=== PATIENT | female | born 1975 | race Caucasian/White ===

== ENCOUNTER 2019-12-18 14:37 | Inpatient (IN) | payer SELFPAY ==
--- NOTE | 2019-12-18 15:26 | RAD REPORT ---
EXAM DESCRIPTION: Shawna Single View12/18/2019 3:18 pm CLINICAL HISTORY: Chest pain COMPARISON: none FINDINGS: The lungs appear clear of acute infiltrate. The heart is normal size IMPRESSION: No acute abnormalities displayed
[2019-12-18] MEDS ORDERED: FENTANYL CITR 100 MCG/2 ML ONE (15:40)
[2019-12-18 15:45] LABS: Absolute Lymphocytes (CBC) 2.4 K/uL (0.7-4.9); Basophils % 0.5 % (0-1.3); Lymphocytes % 16.9 % (15.3-44.8); MPV 8.5 fL (7.6-11.3); RBC Red Blood Cell Count 5.28 M/uL (3.86-4.86)
[2019-12-18 16:04] LABS: BUN Blood Urea Nitrogen 20 mg/dL (7-18); Bicarbonate 24 mmol/L (21-32); CKMB Creatine Kinase MB < 1.0 ng/mL (0.3-3.6); Creatine Phosphokinase 75 U/L (26-192); Glucose Level 106 mg/dL (74-106); Potassium 3.5 mmol/L (3.5-5.1); Sodium Level 141 mmol/L (136-145); Troponin (Emerg Dept Use Only) < 0.02 ng/mL (0.0-0.045)
[2019-12-18] MEDS ORDERED: NA CHLORIDE 0.9% 1,000 ML ONE (16:12)
[2019-12-18 16:20] LABS: Urine Blood NEGATIVE (NEG); Urine Glucose NEGATIVE (NEG); Urine Protein NEGATIVE (NEG); Urine Specific Gravity 1.025 (1.005-1.030)
--- NOTE | 2019-12-18 17:01 | RAD REPORT ---
EXAM DESCRIPTION: CT - Angio Aorta For Dissection - 12/18/2019 4:42 pm CLINICAL HISTORY: . Chest and abd pain COMPARISON: None TECHNIQUE: Computed tomography angiography of the chest, abdomen pelvis were obtained. 100 cc Isovue 370 was administered intravenously. Coronal and sagittal reconstruction were performed. MIP 3D reconstruction was performed All CT scans are performed using dose optimization technique as appropriate and may include automated exposure control or mA/KV adjustment according to patient size. FINDINGS: An aortic dissection is not seen. An aortic aneurysm is not displayed. The celiac, SMA and SANTIAGO are patent . A lung consolidation is not present. A pericardial effusion is not seen. A pleural effusion is not n oted. Mild subpleural interstitial opacities within the upper lobes appear chronic. The left lobe of the liver is prominent. The Spleen, pancreas adrenals kidneys demonstrate no significant abnormality. . There no evidence diverticulitis. Hysterectomy. Normal appendix IMPRESSION: Negative for an aortic dissection.
[2019-12-18] MEDS ORDERED: METOPROLOL TAR 50 MG TAB ONE (19:04)
--- NOTE | 2019-12-18 19:05 | EDPHYS ---
Physician Documentation [facility] Name: Arianne Beaver Age: 43 yrs Sex: Female : 1975 Arrival Date: 12/18/2019 Time: 14:39 Bed 5 Private MD: ED Physician Isaiah Piper HPI: 12/17 15:10 This 43 yrs old Female presents to ER via Ambulatory with complaints of snw Shortness Of Breath, Back Pain. 15:10 The patient has shortness of breath at rest, with light activity. Onset: The snw symptoms/episode began/occurred suddenly, last night, and became worse this morning. Duration: The symptoms are continuous. Associated signs and symptoms: Pertinent positives: low back pain, mildly painful respirations. Severity of symptoms: in the emergency department the symptoms are unchanged. The patient has not experienced similar symptoms in the past. The patient has not recently seen a physician. no PMH, no meds, no allergies. RESEARCH SUBJECT: 19:45 LMP N/A - Hysterectomy rr5 Historical: - Allergies: 14:50 No Known Allergies; ll1 - PMHx: 20:05 None; rr5 - PSHx: 14:50 Hysterectomy; Tubal ligation; ll1 - Immunization history:: Flu vaccine is not up to date. - Social history:: Smoking status: Patient reports the use of cigarette tobacco products, smokes one-half pack cigarettes per day, Patient uses alcohol, occasionally. only on a social basis. Patient/guardian denies using street drugs, IV drugs. ROS: 15:10 Eyes: Negative for injury, pain, redness, and discharge, ENT: Negative for injury, snw pain, and discharge, Neck: Negative for injury, pain, and swelling, Cardiovascular: Negative for chest pain, palpitations, and edema, Respiratory: Negative for shortness of breath, cough, wheezing, and pleuritic chest pain, Abdomen/GI: Negative for abdominal pain, nausea, vomiting, diarrhea, and constipation, : Negative for injury, bleeding, discharge, and swelling, MS/Extremity: Negative for injury and deformity, Skin: Negative for injury, rash, and discoloration, Neuro: Negative for headache, weakness, numbness, tingling, and seizure, Psych: Negative for depression, anxiety, suicide ideation, homicidal ideation, and hallucinations. 15:10 Constitutional: Positive for malaise. 15:10 Back: Positive for pain at rest, pain with movement, of the low back area. Exam: 15:09 Eyes: Pupils equal round and reactive to light, extra-ocular motions intact. Lids and snw lashes normal. Conjunctiva and sclera are non-icteric and not injected. Cornea within normal limits. Periorbital areas with no swelling, redness, or edema. ENT: Nares patent. No nasal discharge, no septal abnormalities noted. Tympanic membranes are normal and external auditory canals are clear. Oropharynx with no redness, swelling, or masses, exudates, or evidence of obstruction, uvula midline. Mucous membranes moist. Neck: Trachea midline, no thyromegaly or masses palpated, and no cervical lymphadenopathy. Supple, full range of motion without nuchal rigidity, or vertebral point tenderness. No Meningismus. Chest/axilla: Normal chest wall appearance and motion. Nontender with no deformity. No lesions are appreciated. Cardiovascular: Regular rate and rhythm with a normal S1 and S2. No gallops, murmurs, or rubs. Normal PMI, no JVD. No pulse deficits. Abdomen/GI: Soft, non-tender, with normal bowel sounds. No distension or tympany. No guarding or rebound. No evidence of tenderness throughout. Back: No spinal tenderness. No costovertebral tenderness. Full range of motion. Skin: Warm, dry with normal turgor. Normal color with no rashes, no lesions, and no evidence of cellulitis. MS/ Extremity: Pulses equal, no cyanosis. Neurovascular intact. Full, normal range of motion. Neuro: Awake and alert, GCS 15, oriented to person, place, time, and situation. Cranial nerves II-XII grossly intact. Motor strength 5/5 in all extremities. Sensory grossly intact. Cerebellar exam normal. Normal gait. Psych: Awake, alert, with orientation to person, place and time. Behavior, mood, and affect are within normal limits. 15:09 Constitutional: The patient appears alert, awake, anxious. 15:09 Respiratory: the patient does not display signs of respiratory distress, Respirations: shallow respirations, tachypnea, Breath sounds: bronchial sounds, that are mild, are heard in the right posterior middle lobe, Respiratory rate: 24 Vital Signs: 14:47 BP 177 / 114 RA Sitting (auto/); Pulse 83; Resp 18; Temp 98.3; Pulse Ox 100% ; Weight sv 68.95 kg; Height 5 ft. 4 in. (162.56 cm); Pain 8/10; 15:45 BP 175 / 106 LA Sitting (auto/); Pulse 70; Resp 22; Pulse Ox 100% on R/A; sv 16:14 Pain 8/10; sv 17:03 BP 187 / 106 LA Sitting (auto/); Pulse 67; Resp 12; Pulse Ox 100% on R/A; sv 18:30 BP 178 / 102; Pulse 74; Resp 16; Pulse Ox 97% on R/A; hb 19:45 BP 168 / 124; Pulse 70; Resp 17; Pulse Ox 99% ; Pain 6/10; rr5 14:47 Body Mass Index 26.09 (68.95 kg, 162.56 cm) sv MDM: 15:12 Patient medically screened. snw 16:01 The patient's Wells Deep Vein Thrombosis Score was calculated as follows: No Risks (0 snw Pts). The patient's pulmonary embolism risk score was calculated as follows: No Risks (0 Pts). Data reviewed: vital signs, nurses notes. Response to treatment: pt still with pain/sob, no hx of HTN, bilat blood pressures elevated, pt hemoconcentrated, will hydrate, medicated again for pain and CT aorta. 18:15 Physician consultation: Alexei WEN was called at 18:15, was contacted at 18:15, snw regarding admission, to the telemetry unit. patient's condition, and will see patient in ED. 12/17 15:04 Order name: DD; Complete Time: 15:55 snw 12/17 15:04 Order name: Ckmb; Complete Time: 16:05 snw 12/17 15:04 Order name: CPK; Complete Time: 16:05 snw 12/17 15:04 Order name: Troponin (emerg Dept Use Only); Complete Time: 16:05 snw 12/17 15:04 Order name: CBC with Diff; Complete Time: 15:55 snw 12/17 15:04 Order name: Chem 7; Complete Time: 16:05 snw 12/17 15:04 Order name: Chest Single View XRAY; Complete Time: 15:33 snw 09/16 16:01 Order name: CT Aorta for Dissection; Complete Time: 17:21 snw 12/17 16:17 Order name: Urine Dipstick--Ancillary (enter results); Complete Time: 16:21 ss 12/17 15:04 Order name: Urine Dipstick-Ancillary (obtain specimen); Complete Time: 16:13 snw 12/17 15:04 Order name: SL; Complete Time: 15:38 snw 12/17 15:09 Order name: Misc. Order: Please document 177/99; Complete Time: 15:26 snw 12/17 15:09 Order name: Bilateral blood pressure; Complete Time: 15:51 snw Administered Medications: 15:37 Drug: fentaNYL (PF) 50 mcg {Note: rass3.} Route: IVP; Site: right antecubital; sv 16:14 Follow up: Pain 8/10 Adult; Response: No adverse reaction; Pain is decreased; RASS: sv Agitated (+2) 16:13 Drug: fentaNYL (PF) 50 mcg {Note: rass2.} Route: IVP; Site: right antecubital; sv 17:00 Follow up: Response: No adverse reaction; Pain is decreased; RASS: Alert and Calm (0) sv 16:14 Drug: NS 0.9% 1000 ml Route: IV; Rate: 1 bolus; Site: right antecubital; sv 20:05 Follow up: Response: No adverse reaction; IV Status: Completed infusion; IV Intake: rr5 1000ml 19:00 Drug: Metoprolol TARTRATE (Lopressor) 50 mg Route: PO; sv 20:00 Follow up: Response: No adverse reaction rr5 19:52 Drug: Nicotine 21 mg/24 hr 1 patches {Note: right upper arm.} Route: Transdermal; Site: rr5 affected area; 20:06 Follow up: Response: No adverse reaction rr5 Disposition: 12/18/19 19:05 Hospitalization ordered by Isaiah Piper for Observation. Preliminary diagnosis are Chest pain, unspecified, Essential (primary) hypertension, Low back pain, Volume depletion. - Bed requested for Telemetry/MedSurg (observation). - Status is Observation. rr5 - Condition is Stable. - Problem is new. - Symptoms are unchanged. Addendum: 12/23/2019 07:03 Co-signature as Attending Physician, Dennis Piper MD. r n Signatures: Dispatcher [employer] EDMS Regine Chung, RN RN Kimberly Dutta, SODA MAKER-C SODA MAKER-Csnw Dennis Piper MD MD rn Attema, Lee, SODA MAKER-C SODA MAKER-Cla1 India Seo, RN RN tl1 Isaiah Raya RN RN rr5 Marc Mandujano RN RN ll1 Corrections: (The following items were deleted from the chart) 12/17 15:09 15:04 Recheck B/P ordered. [facility] sn 15:34 15:04 Urine Test ordered. [facility] sn 19:07 19:05 Hospitalization Ordered by Isaiah Piper MD for Observation. Preliminary [facility] diagnosis is Chest pain, unspecified; Essential (primary) hypertension; Low back pain. Bed requested for Telemetry/MedSurg (observation). Status is Observation. Condition is Stable. Problem is new. Symptoms are unchanged. [facility] 19:35 19:07 12/18/2019 19:05 Hospitalization Ordered by Isaiah Piper MD for Observation. tl1 Preliminary diagnosis is Chest pain, unspecified; Essential (primary) hypertension; Low back pain; Volume depletion. Bed requested for Telemetry/MedSurg (observation). Status is Observation. Condition is Stable. Problem is new. Symptoms are unchanged. [facility] 20:09 19:35 12/18/2019 19:05 Hospitalization Ordered by Isaiah Piper MD for Observation. rr5 Preliminary diagnosis is Chest pain, unspecified; Essential (primary) hypertension; Low back pain; Volume depletion. Bed requested for Telemetry/MedSurg (observation). Status is Observation. Condition is Stable. Problem is new. Symptoms are unchanged. tl1
--- NOTE | 2019-12-18 19:05 | ER ---
Nurse's Notes [facility] Name: Arianne Beaver Age: 43 yrs Sex: Female : 1975 Arrival Date: 12/18/2019 Time: 14:39 Bed 5 Private MD: Diagnosis: Chest pain, unspecified;Essential (primary) hypertension;Low back pain;Volume depletion Presentation: 12/17 14:47 Chief complaint: Patient states: Low back pain started last night, no trauma or falls. ll1 Pain with breathing started today, no cough or fever. Coronavirus screen: Client denies travel out of the [place] in the last 14 days. difficulty breathing, shortness of breath, At this time, the client does not indicate any symptoms associated with coronavirus-19. Ebola Screen: Patient denies travel to an Ebola-affected area in the 21 days before illness onset. Initial Sepsis Screen: Does the patient meet any 2 criteria? No. Patient's initial sepsis screen is negative. Risk Assessment: Do you want to hurt yourself or someone else? Patient reports no desire to harm self or others. Onset of symptoms was December 17, 2019. 14:47 Method Of Arrival: Ambulatory ll1 14:47 Acuity: ANALILIA 3 ll1 15:30 Initial Sepsis Screen: Does the patient have a suspected source of infection? No. sv Patient's initial sepsis screen is negative. Triage Assessment: 19:10 Respiratory: the patient reports symptoms have resolved. rr5 LAB ANALYST: 19:45 LMP N/A - Hysterectomy rr5 Historical: - Allergies: 14:50 No Known Allergies; ll1 - PMHx: 20:05 None; rr5 - PSHx: 14:50 Hysterectomy; Tubal ligation; ll1 - Immunization history:: Flu vaccine is not up to date. - Social history:: Smoking status: Patient reports the use of cigarette tobacco products, smokes one-half pack cigarettes per day, Patient uses alcohol, occasionally. only on a social basis. Patient/guardian denies using street drugs, IV drugs. Screenin:30 Abuse screen: Denies threats or abuse. Denies injuries from another. Nutritional sv screening: No deficits noted. Tuberculosis screening: No symptoms or risk factors identified. Fall Risk None identified. Assessment: 15:30 General: Appears in no apparent distress. uncomfortable, well groomed, well developed, sv Behavior is cooperative, appropriate for age, restless. Pain: Complains of pain in low back area Pain currently is 8 out of 10 on a pain scale. Is continuous, Noted to be grimacing, restless. Neuro: Level of Consciousness is awake, alert, obeys commands, Oriented to person, place, time, situation, Moves all extremities. Full function Gait is steady, Speech is normal. Cardiovascular: Rhythm is sinus rhythm. Respiratory: Reports shortness of breath Airway is patent Respiratory effort is even, unlabored, Respiratory pattern is regular, symmetrical. Derm: Skin is intact, Skin is pink, warm \T\ dry. Musculoskeletal: Range of motion: intact in all extremities. 16:10 Reassessment: Patient appears in no apparent distress at this time. Patient and/or sv family updated on plan of care and expected duration. Pain level reassessed. Patient is alert, oriented x 3, equal unlabored respirations, skin warm/dry/pink. Pain: Pain currently is 8 out of 10 on a pain scale. 17:00 Reassessment: Patient appears in no apparent distress at this time. Patient and/or hb family updated on plan of care and expected duration. Pain level reassessed. Patient is alert, oriented x 3, equal unlabored respirations, skin warm/dry/pink. 17:55 Reassessment: Patient appears in no apparent distress at this time. Patient and/or hb family updated on plan of care and expected duration. Pain level reassessed. Patient is alert, oriented x 3, equal unlabored respirations, skin warm/dry/pink. 18:30 Reassessment: Patient appears in no apparent distress at this time. Patient and/or hb family updated on plan of care and expected duration. Pain level reassessed. Patient is alert, oriented x 3, equal unlabored respirations, skin warm/dry/pink. 19:10 General: Appears in no apparent distress. uncomfortable, Behavior is calm, cooperative, rr5 appropriate for age. Respiratory: 19:10 Pain: Complains of pain in back Pain currently is 6 out of 10 on a pain scale. Quality rr5 of pain is described as aching, Pain began gradually, Is intermittent. Neuro: Level of Consciousness is awake, alert, obeys commands, Oriented to person, place, time, situation. Cardiovascular: Capillary refill < 3 seconds Patient's skin is warm and dry. Respiratory: Airway is patent Respiratory effort is even, unlabored, Respiratory pattern is regular, symmetrical. GI: No signs and/or symptoms were reported involving the gastrointestinal system. : No signs and/or symptoms were reported regarding the genitourinary system. EENT: No signs and/or symptoms were reported regarding the EENT system. Derm: Skin is intact, is healthy with good turgor, Skin temperature is warm. Musculoskeletal: Reports pain in back. 19:50 Reassessment: hospitalist Alexei informed, patient requested for nicotine patch with rr5 telephone order made and carried out. complaining of back pain tramadol order signed in 2-Observe. Vital Signs: 14:47 BP 177 / 114 RA Sitting (auto/); Pulse 83; Resp 18; Temp 98.3; Pulse Ox 100% ; Weight sv 68.95 kg; Height 5 ft. 4 in. (162.56 cm); Pain 8/10; 15:45 BP 175 / 106 LA Sitting (auto/); Pulse 70; Resp 22; Pulse Ox 100% on R/A; sv 16:14 Pain 8/10; sv 17:03 BP 187 / 106 LA Sitting (auto/); Pulse 67; Resp 12; Pulse Ox 100% on R/A; sv 18:30 BP 178 / 102; Pulse 74; Resp 16; Pulse Ox 97% on R/A; hb 19:45 BP 168 / 124; Pulse 70; Resp 17; Pulse Ox 99% ; Pain 6/10; rr5 14:47 Body Mass Index 26.09 (68.95 kg, 162.56 cm) sv ED Course: 14:39 Patient arrived in ED. ds1 14:49 Triage completed. ll1 14:50 Arm band placed on. ll1 15:03 Kimberly [facility]C [facility] snw 15:03 Dennis Piper MD is Attending Physician. snw 15:18 Chest Single View XRAY In Process Unspecified. EDMS 15:24 Regine Chung RN is Primary Nurse. sv 15:25 X-ray(s) taken. sv 15:30 Patient has correct armband on for positive identification. Bed in low position. Call sv light in reach. assistant director on. Pulse ox on. NIBP on. Door closed. Head of bed elevated. 15:30 Inserted saline lock: 20 gauge in right antecubital area, using aseptic technique. sv Blood collected. Flushed right antecubital with 5 ml normal saline. 15:51 Awaiting lab results, Awaiting re-evaluation by ER provider. sv 16:[address] Scan. sv 16:42 CT Aorta for Dissection In Process Unspecified. EDMS 17:33 Awaiting disposition, Awaiting re-evaluation by ER provider. sv 19:00 Report given to Christine PAULINO and Isaiah RN. sv 19:03 Isaiah Piper MD is Hospitalizing Provider. snw 19:40 Attending Physician role handed off by Dennis Piper MD bb 20:02 No provider procedures requiring assistance completed. Patient admitted, IV remains in rr5 place. intact, No redness/swelling at site. 20:08 Isaiah Piper MD is Attending Physician. rr5 Administered Medications: 15:37 Drug: fentaNYL (PF) 50 mcg {Note: rass3.} Route: IVP; Site: right antecubital; sv 16:14 Follow up: Pain 8/10 Adult; Response: No adverse reaction; Pain is decreased; RASS: sv Agitated (+2) 16:13 Drug: fentaNYL (PF) 50 mcg {Note: rass2.} Route: IVP; Site: right antecubital; sv 17:00 Follow up: Response: No adverse reaction; Pain is decreased; RASS: Alert and Calm (0) sv 16:14 Drug: NS 0.9% 1000 ml Route: IV; Rate: 1 bolus; Site: right antecubital; sv 20:05 Follow up: Response: No adverse reaction; IV Status: Completed infusion; IV Intake: rr5 1000ml 19:00 Drug: Metoprolol TARTRATE (Lopressor) 50 mg Route: PO; sv 20:00 Follow up: Response: No adverse reaction rr5 19:52 Drug: Nicotine 21 mg/24 hr 1 patches {Note: right upper arm.} Route: Transdermal; Site: rr5 affected area; 20:06 Follow up: Response: No adverse reaction rr5 Intake: 20:05 IV: 1000ml; Total: 1000ml. rr5 Output: 16:24 Urine: 200ml (Voided); Total: 200ml. sv Outcome: 19:05 Decision to Hospitalize by Provider. snw 19:35 Patient left the ED. tl1 20:02 Admitted to [facility] accompanied by ros, via stretcher, room 407, with chart, Report rr5 called to loyda 20:02 Condition: stable 20:02 Instructed on the need for admit. 20:09 Patient left the ED. rr5 Addendum: 12/20/2019 17:46 Addendum: COVID-19 Result: Negative result given to RN to notify pt. Notified pt of i w negative COVID 19 swab results. Pt advised that even with a negative test result they should remain in isolation until symptom free for 3 days without medication. Pt also advised to return to the ED for worsening symptoms. Signatures: Dispatcher [employer] EDMS Regine Chung, RN Kimberly Todd, LEARNING AND DEVELOPMENT CONSULTANT-C LEARNING AND DEVELOPMENT CONSULTANT-Kathy Souza ds1 Fariha Corey RN JEFFERSON bb Lala Conley RN RN iw India Seo RN RN tl1 Margie Contreras RN RN Isaiah Raya RN RN rr5 Marc Mandujano RN RN ll1 Corrections: (The following items were deleted from the chart) 12/17 15:26 14:47 BP 117 / 114; Pulse 83bpm; Resp 18bpm; Pulse Ox 100%; Temp 98.3F; 68.95 kg; ll1 Height 5 ft. 4 in.; BMI: 26.0; Pain 8/10; ll1 15:50 14:47 BP 177 / 114; Pulse 83bpm; Resp 18bpm; Pulse Ox 100%; Temp 98.3F; 68.95 kg; sv Height 5 ft. 4 in.; BMI: 26.0; Pain 8/10; ll1 15:51 14:47 BP 177 / 114 Supine Auto R Arm; Pulse 83bpm; Resp 18bpm; Pulse Ox 100%; Temp sv 98.3F; 68.95 kg; Height 5 ft. 4 in.; BMI: 26.0; Pain 8/10; sv
[2019-12-18] MEDS ORDERED: ACETAMINOPHEN 500 MG TAB PO PRN (19:55)
[2019-12-18] MEDS ORDERED: HYDRALAZINE HCL 20 MG/ML VIAL IV PRN (19:55)
[2019-12-18] MEDS ORDERED: ONDANSETRON 4 MG/2 ML VIAL IV PRN (19:55)
[2019-12-18] MEDS ORDERED: TRAMADOL HCL 50 MG TAB PO PRN ×2 (19:55→21:00)
[2019-12-18] MEDS ORDERED: TRAMADOL HCL 50 MG TAB ONE (19:58)
[2019-12-18] MEDS ORDERED: NICOTINE 21 MG/PAT TD ONE (19:59)
--- NOTE | 2019-12-18 20:15 | P.HP ---
Certification for Inpatient Patient admitted to: Observation With expected LOS: <2 Midnights Patient will require the following post-hospital care: None Practitioner: I am a practitioner with admitting privileges, knowledge of patient current condition, hospital course, and medical plan of care. Services: Services provided to patient in accordance with Admission requirements found in Title 42 Section 412.3 of the Code of Federal Regulations <Alexei Garcia - Last Filed: 12/18/19 20:20> Patient History Date of Service: 12/18/19 Primary Care Provider: None Reason for admission: Chest pain History of Present Illness: 43-year-old female with no known medical history presented to the emergency department for complaints of low back pain and chest pain. Patient reports that she had been having some intermittent low back pain but this morning when she woke up for pain was so bad that she had a rule out of bed was able walk. Patient reports that she tried to go to work but they wanted her to be evaluated prior to returning. While patient was on the way to the emergency department she began to experience some chest tightness. Patient reports that chest tightness has lasted for approximately 1-2 hr. Pain is nonradiating, no associated signs symptoms such as nausea, vomiting, diaphoresis, dizziness. Patient has never had cardiac evaluation. Patient was noted to be hypertensive in the 170s to 180s over 105-110 range. Patient never has been on blood pressure medication in the past. Blood pressure is persistently elevated even with moderate pain relief. ED provider wishes to admit pt for further evaluation. When I saw the pt in the ER she was awake, alert, oriented x3, reporting mild chest tightness and lower back pain. NSR on EKG, trop negative, CXR WNL. Will admit under obs for further evaluation. - Past Medical/Surgical History Diabetic: No -: None -: Hysterectomy -: Tubal Psychosocial/ Personal History: Patient lives with her and works at [employer] - Family History Mother -: Other (see notes) (Unknown Coagulopathy) - Social History Smoking Status: Current every day smoker Alcohol use: No CD- Drugs: No Caffeine use: Yes Place of Residence: Home <Alexei Garcia - Last Filed: 12/18/19 20:20> Date of Service: 12/21/19 <Isaiah Piper - Last Filed: 12/21/19 16:03> Allergies No Known Allergies Allergy (Verified 12/18/19 23:43) Review of Systems 10-point ROS is otherwise unremarkable Cardiovascular: Chest Pain, As per HPI Musculoskeletal: Back Pain, As per HPI <Alexei Garcia - Last Filed: 12/18/19 20:20> Physical Examination - Vital Signs Temperature: 98.3 F Blood Pressure: 178/102 Pulse: 74 Respirations: 18 Pulse Ox (%): 99 - Physical Exam General: Alert, In no apparent distress, Oriented x3 HEENT: Atraumatic, Normocephalic, PERRLA, Mucous membr. moist/pink Neck: Supple Respiratory: Clear to auscultation bilaterally, Normal air movement Cardiovascular: No edema, Regular rate/rhythm, Normal S1 S2 Capillary refill: <2 Seconds Gastrointestinal: Normal bowel sounds, Soft and benign Musculoskeletal: No swelling, No contractures, No erythema Integumentary: No significant lesion, No tenderness/swelling, No erythema Neurological: Normal speech, Normal strength at 5/5 x4 extr, Sensation intact, Normal affect - Studies Laboratory Data (last 24 hrs) 12/18/19 15:30: WBC 14.3 H, Hgb 15.8 H, Hct 47.0 H, Plt Count 245 12/18/19 15:30: Sodium 141, Potassium 3.5, BUN 20 H, Creatinine 0.79, Glucose 106 <Alexei Garcia - Last Filed: 12/18/19 20:20> Assessment and Plan - Plan Assessment Chest pain rule out ACS Hypertension Low back pain Plan Chest pain rule out ACS: Will trend troponins, cardiology consult in place. Will order echocardiogram. Patient to remain on telemetry throughout this hospitalization. Will continue with daily aspirin, beta-chino therapy. Will obtain lipid panel and thyroid panel. Hypertension: Have initiated beta-chino therapy with metoprolol 25 mg p.o. b.i.d. with parameters. Also placed p.r.n. medications. Low back pain: Patient history of sciatica, but this does not appear to be an acute or surgical issue. Will provide patient with your medications for muscle relaxants, pain medications. Patient need to follow up with PCP for further management. Discharge Plan: Home Plan to discharge in: 24 Hours - Advance Directives Does patient have a Living Will: No Does patient have a Durable POA for Healthcare: No - Code Status/Comfort Care Code Status Assessed: Yes (Patient is full code) Critical Care: No Time Spent Managing Pts Care (In Minutes): 55 <Alexei Garcia - Last Filed: 12/18/19 20:20> Physician Review Additional Text: Plan of care discussed with Alexei Garcia, and I agree with the management plan as noted above. <Isaiah Piper - Last Filed: 12/21/19 16:03>
[2019-12-18 20:30] VITALS: BMI 26.8
[2019-12-18 21:31] LABS: CKMB Creatine Kinase MB < 1.0 ng/mL (0.3-3.6); Troponin I < 0.02 ng/mL (0.0-0.045)
[2019-12-18] MEDS: HYDROCODONE/APAP 7.5/325 MG TAB PO PRN (22:08)
[2019-12-19] MEDS: CYCLOBENZAPRINE 10 MG TAB PO PRN ×2 (00:33→12:54)
[2019-12-19] MEDS: HYDROCODONE/APAP 7.5/325 MG TAB PO PRN ×2 (02:37→08:33)
[2019-12-19 03:56] LABS: Basophils % 0.6 % (0-1.3); Hematocrit 43.4 % (36.0-45.0); Lymphocytes % 29.4 % (15.3-44.8); MPV 8.4 fL (7.6-11.3); RBC Red Blood Cell Count 4.96 M/uL (3.86-4.86)
[2019-12-19 04:09] LABS: BUN Blood Urea Nitrogen 13 mg/dL (7-18); Bicarbonate 26 mmol/L (21-32); CKMB Creatine Kinase MB < 1.0 ng/mL (0.3-3.6); Glucose Level 86 mg/dL (74-106); HDL Cholesterol 56 mg/dL (40-60); LDL Cholesterol, Calculated 51 (<130); Potassium 3.4 mmol/L (3.5-5.1); Sodium Level 145 mmol/L (136-145)
[2019-12-19] MEDS: METOPROLOL TAR 25 MG TAB PO SCH ×2 (05:16→18:12)
[2019-12-19 05:50] VITALS: O2SAT 96
[2019-12-19 06:50] LABS: Magnesium 2.5 mg/dL (1.8-2.4)
[2019-12-19] MEDS ORDERED: POTASSIUM 25 MEQ EFFERV TAB PO ONE (09:00)
[2019-12-19] MEDS ORDERED: ASPIRIN EC 81 MG TAB PO SCH (09:00)
[2019-12-19] MEDS ORDERED: NICOTINE 21 MG/PAT TD SCH (09:00)
[2019-12-19] MEDS ORDERED: ENOXAPARIN 40 MG/0.4 ML SQ SCH (09:00)
--- NOTE | 2019-12-19 13:46 | CON ---
Date of Consultation: 12/18/2019 Admitted on 12/18/[address] Piper's service. I saw the patient on 12/18/2019. Reason For Consultation: Chest pain and hypertension. History Of Present Illness: Ms. Beaver is a 43-year-old woman. Has had a history of hypertension in t he past, but she has been noncompliant with her medical regimen. Came in with blood pressure 178/102 , slightly elevated white count, negative chest x-ray, negative EKG, negative troponin, negative CT f or dissection. Her blood pressure is being treated now by Dr. Piper appropriately. She denied PND, orthopnea, pedal edema, palpitations, or syncope. Past Medical History: Positive for hypertension. Allergies: NONE. Review of Systems: Negative. Social History: Negative. Family History: Noncontributory. Medications: At home are none. Physical Examination: Vital Signs: Her blood pressure was 178/102. No acute distress. Afebrile, sinus rhythm. HEENT: Negative. Neck: Supple with no bruit. Chest: Clear to auscultation and percussion. Cardiac: Revealed a regular rhythm and rate. No murmurs, gallops, or rubs. Abdomen: Benign. Extremities: Revealed no clubbing, cyanosis, or edema. Diagnostic Data: As stated earlier. Impression And Plan: Hypertensive crisis causing chest pain and back pain. She had a negative CT fo r dissection. Echocardiogram is pending. I think she can go home and have an outpatient stress test that could be a routine stress test. She should be on a beta-chino, preferably lisinopril with hy drochlorothiazide, which has worked for her before. She can go home after her echocardiogram. We wi ll see her in the office as an outpatient. ASIF/MALKA Voice ID: [id number] Report ID: [id number]
[2019-12-19 16:56] VITALS: BP 138/80; TEMP 98
--- NOTE | 2019-12-19 16:56 | P.DS ---
Admission Date: 12/18/19 Discharge Date: 12/19/19 Primary Care Provider: None Disposition: ROUTINE DISCHARGE Discharge Condition: GOOD Reason for Admission: Chest pain Consultations: Cardiology - Dr. Vela Procedures: CXR: No acute abnormality CT dissection: Negative for aortic dissection, no lung consolidation TTE: pending Problem List Chest pain rule out ACS Hypertension Low back pain Brief History of Present Illness: 43-year-old female with no known medical history presented to the emergency department for complaints of low back pain and chest pain. Patient reports that she had been having some intermittent low back pain but this morning when she woke up for pain was so bad that she had a rule out of bed was able walk. Patient reports that she tried to go to work but they wanted her to be evaluated prior to returning. While patient was on the way to the emergency department she began to experience some chest tightness. Patient reports that chest tightness has lasted for approximately 1-2 hr. Pain is nonradiating, no associated signs symptoms such as nausea, vomiting, diaphoresis, dizziness. Patient has never had cardiac evaluation. Patient was noted to be hypertensive in the 170s to 180s over 105-110 range. Patient never has been on blood pressure medication in the past. Blood pressure is persistently elevated even with moderate pain relief. ED provider wishes to admit pt for further evaluation. Hospital Course: 43-year-old female who was admitted for further evaluation of her chest tightness and management of her hypertension and low back pain. Her troponins were trended and remained negative. She had resolution of her chest tightness. Cardiology was consulted and felt this was likely to be cardiac related. She underwent echocardiogram and will follow up to review the results as an outpatient, and possibly a stress test. Her blood pressure improved with pain control, and she was started on metoprolol 25 mg b.i.d., but still remained elevated. She will be discharged with lisinopril 10 mg. Her low back pain was felt to be musculoskeletal in nature, with tenderness along the paraspinal muscles. She reported no trauma, no recent strenuous activities, she did fall asleep on her couch the night prior to admission. No red flags on exam. Patient had mild-moderate improvement with tramadol and Flexeril. Vital Signs/Physical Exam: Temp Pulse Resp BP Pulse Ox 98.1 F 57 15 138/86 97 12/19/19 12:00 12/19/19 12:00 12/19/19 12:00 12/19/19 12:00 12/19/19 12:00 General: Alert, In no apparent distress HEENT: Mucous membr. moist/pink, Sclerae nonicteric Neck: Supple, No LAD Respiratory: Clear to auscultation bilaterally, Normal air movement Cardiovascular: No edema, Regular rate/rhythm, Normal S1 S2 Gastrointestinal: Soft and benign, Non-distended, No tenderness Musculoskeletal: Tenderness (along lumbar paraspinal muscles) Integumentary: No rashes Neurological: Normal speech, Normal strength at 5/5 x4 extr, Sensation intact, Normal affect Laboratory Data at Discharge: WBC 13.5 K/uL (4.3-10.9) H 12/19/19 02:55 Hgb 14.8 g/dL (12.0-15.0) 12/19/19 02:55 Hct 43.4 % (36.0-45.0) 12/19/19 02:55 Plt Count 227 K/uL (152-406) 12/19/19 02:55 Sodium 145 mmol/L (136-145) 12/19/19 02:55 Potassium 3.9 mmol/L (3.5-5.1) 12/19/19 15:39 BUN 13 mg/dL (7-18) 12/19/19 02:55 Creatinine 0.56 mg/dL (0.55-1.3) 12/19/19 02:55 Glucose 86 mg/dL (74-106) 12/19/19 02:55 Magnesium 2.5 mg/dL (1.8-2.4) H 12/19/19 02:55 Troponin I < 0.02 ng/mL (0.0-0.045) 12/18/19 20:50 Triglycerides 172 mg/dL (<150) H 12/19/19 02:55 Cholesterol 141 mg/dL (<200) 12/19/19 02:55 HDL Cholesterol 56 mg/dL (40-60) 12/19/19 02:55 Cholesterol/HDL Ratio 2.52 12/19/19 02:55 Home Medications: Aspirin [Aspirin EC 81 MG] 1 tab PO DAILY 30 Days #30 tablet. 12/19/19 Cyclobenzaprine [Flexeril*] 1 tab PO TIDP PRN 7 Days #20 tab 12/19/19 Lisinopril [Zestril] 1 tab PO DAILY 30 Days #30 tablet 12/19/19 Metoprolol Tartrate [Lopressor*] 1 tab PO BID 6AM 6PM 30 Days #30 tab 12/19/19 traMADol HCL [Ultram*] 1 tab PO Q6HP PRN 5 Days #20 tab 12/19/19 New Medications: traMADol HCL [Ultram*] 1 tab PO Q6HP PRN 5 Days #20 tab PRN Reason: Pain Scale 5-7 (Moderate) Aspirin [Aspirin EC 81 MG] 1 tab PO DAILY 30 Days #30 tablet. Cyclobenzaprine [Flexeril*] 1 tab PO TIDP PRN 7 Days #20 tab PRN Reason: Muscle Spasms Metoprolol Tartrate [Lopressor*] 1 tab PO BID 6AM 6PM 30 Days #30 tab Lisinopril [Zestril] 1 tab PO DAILY 30 Days #30 tablet Patient Discharge Instructions: Follow up with PCP within 1-2 weeks. Follow up with Dr. Vela in 2-3 weeks for possible stress test. Diet: AHA Activity: Ad natali Time spent managing pt's care (in minutes): 35
--- NOTE | 2019-12-20 06:40 | ECHO ---
HEIGHT: 5 ft 4 in WEIGHT: 156 lb 6.4 oz DATE OF STUDY: 12/19/[address]: Alexei Garcia NP 2-DIMENSIONAL: YES M.MODE: YES DOPPLER: YES COLOR FLOW: YES TDS: PORTABLE: DEFINITY: BUBBLE STUDY: DIAGNOSIS: CHEST PAIN CARDIAC HISTORY: CATHERIZATION: NO SURGERY: NO PROSTHETIC VALVE: NO PACEMAKER: NO MEASUREMENTS (cm) DIASTOLIC (NORMALS) SYSTOLIC (NORMALS) IVSd 0.8 (0.6-1.2) LA Diam 2.8 (1.9-4.0) LVEF 60% LVIDd 4.1 (3.5-5.7) LVIDs 2.8 (2.0-3.5) %FS 32% LVPWd 0.9 (0.6-1.2) Ao Diam 2.8 (2.0-3.7) 2 DIMENSIONAL ASSESSMENT: RIGHT ATRIUM: NORMAL LEFT ATRIUM: NORMAL RIGHT VENTRICLE: NORMAL LEFT VENTRICLE: NORMAL TRICUSPID VALVE: NORMAL MITRAL VALVE: NORMAL PULMONIC VALVE: NORMAL AORTIC VALVE: NORMAL PERICARDIAL EFFUSION: NONE AORTIC ROOT: NORMAL LEFT VENTRICULAR WALL MOTION: NORMAL DOPPLER/COLOR FLOW: NORMAL COMMENTS: NORMAL LEFT VENTRICULAR EJECTION FRACTION 55-60%. NORMAL WALL MOTION. NORMAL STUDY. TECHNOLOGIST: DANIEL JACKSON
== END 2019-12-19 18:14 | disposition home or self-care (01) | DRG 305 ==
LOC: ER 14:37 → ERHOLD 18:45 → OBSVTOIN 18:45 → 4TH 20:01
PROVIDERS: ADMIT Emergency Medicine; ATTEND Hospitalist
DX: I16.9 Hypertensive crisis, unspecified (principal); M54.5 Low back pain; I10 Essential (primary) hypertension; F17.200 Nicotine dependence, unspecified, uncomplicated; R07.9 Chest pain, unspecified; Z91.19 Patient's noncompliance with other medical treatment and regimen; Z98.51 Tubal ligation status; Z90.710 Acquired absence of both cervix and uterus; Z20.828 Contact with and (suspected) exposure to other viral communicable diseases
CPT/HCPCS: 36415; 71045; 71275; 74175; 80048; 80061; 81003; 82550; 82553; 83735; 84132; 84439; 84443; 84484; 85025; 85379; 93005; 93306; 96361; 96374; 97161; 99285; J0360; J1650; J3010; J7030; Q9967; U0002

== ENCOUNTER 2020-10-05 12:59 | Emergency (ER) | payer SELFPAY ==
--- OUTSIDE RECORDS SUMMARY | 2020-10-05 13:15 | XMS REPORT | Continuity of Care Document ---
:1975 Author Organization [facility] Address [facility] [place] [address] Care Team Providers Name Role Phone DR ADEOLA Attending Clinician Unavailable Chayito LAZARO Attending Clinician Unavailable DR ROSELINE Attending Clinician Unavailable DR ADEOLA Admitting Clinician Unavailable Chayito LAZARO Admitting Clinician Unavailable DR ROSELINE Admitting Clinician Unavailable Problems This patient has no known problems. Allergies, Adverse Reactions, Alerts This patient has no known allergies or adverse reactions. Medications This patient has no known medications. Procedures This patient has no known procedures. Encounters Start End Encounter Admission Attending Care Care Encounter Source Date/Time Date/Time Type Type Clinicians Facility Department ID 2017-04-20 2017-04-20 Outpatient C [facility] RAD [id number] [place] 14:21:00 23:59:00 [facility] Results Test Description Test Time Test Comments Results Result [facility] e Comments MRI SPINE LUMBAR 2017-04-20 MRI Lumbar Spine without W/O CONTRAST*WW* 15:53:38 contrastLocation code: [id number]: M54.16 - Radiculopathy, lumbar regionCOMPARISON: None.Technique: Multiplanar multisequence MR imaging of the lumbar spine wasperformed without contrast. Findings: Lumbar vertebral height and marrow signal are preserved throughout. 5lumbar segments are assumed. The conus terminates normally at T12-L1. Theparaspinal soft tissues are unremarkable. Multilevel spondylitic changes arenoted as follows:L1-L2: No significant central canal or foraminal stenosis.L2-L3: No significant central canal or foraminal stenosis.L3-L4: Right paracentral 3 mm disc protrusion is present with facet arthropathycreating effacement of the thecal sac and encroachment on the right L4 nerveroot.L4-L5: Moderate disc space narrowing with broad-based annular bulge andposterior spondylosis with facet arthropathy creating effacement of the thecalsac without significant nerve root compromise.L5-S1: Moderate disc space narrowing with bilateral posterolateral discprotrusions/herniati ons, largest on the right measuring 6 mm with facetarthropathy creating mild to moderate stenosis with right greater thanleft-sided S1 nerve root encroachment.IMPRESSION: 1. Bilateral posterolateral disc protrusion/herniations at L5-S1 with facetarthropathy creates mild stenosis with right greater than left-sided S1 nerveroot encroachment as detailed above.2. Right paracentral 3 mm disc protrusion at L3-4. XR CHEST 1 VIEW 2016-07-08 Portable AP chest, 1 PORTABLE 17:00:10 viewLocation Code: [id number] HISTORY: Cough, shortness of breathCOMPARISON: NoneCOMMENT: The lungs are clear and well inflated. The costophrenic angles are sharp. Thecardiomediastinal silhouette is unremarkable. The bones are intact.IMPRESSION: No acute abnormality HEMOGLOBIN & HEMATOCRIT *WW* 2016-06-16 06:39:00 Test Item Value Reference Range Interpretation Comme nts HGB (test code = HBG) 11.7 g/dL 12.0-15.5 L HCT (test code = HCT) 35.8 % 35.0-44.0 URINE MONOCLONAL *WW*2016-06-15 06:21:00 Test Item Value Reference Range Interpretation Comments PREG UR (test code = PGU) NEGATIVE NEGATIVE PRO TIME AND PTT *WW*2016-06-14 13:32:00 Test Item Value Reference Range Interpretation Comments PT (test code = 11.7 s 9.8-13.6 TT) INR (test code = 1.0 INR) INRH (test code = SUGGESTED INRH) THERAPEUTIC RANGE FOR INR: 2.5 - 3.5 For Patients with Prosthetic Valves or Patients with recurrent Thromboembolic Events 2.0 - 3.0 For Most Other Applications PTT (test code = 28.1 s 20.2-38.0 PTT) PTTH (test code = To monitor the PTTH) effectiveness of heparin, we offer the Anti-Xa (Heparin Assay). It can be used for either unfractinated or LMW Heparin. Order Code is ANTI-XA BASIC METABOLIC PANEL 2016-06-14 13:28:00 Test Item Value Reference Range Interpretation Comments GLUCOSE (test code = 06D) 104 mg/dL 75-100 H SODIUM (test code = 01A) 137 mmol/L 136-145 POTASSIUM (test code = 01B) 4.0 mmol/L 3.6-5.1 CHLORIDE (test code = 04A) 104 mmol/L 98-107 CO2 (test code = 02A) 28 mmol/L 22-32 ANION GAP (test code = ANG) 9.0 mmol/L BUN (test code = 05D) 17 mg/dL 7-18 CREATININE (test code = 03E) 0.6 mg/dL 0.4-1.1 BUN/CREA R (test code = BCR) 28 12-20 H CALCIUM (test code = 09D) 8.5 mg/dL 8.3-9.5 CBC (INCLUDES AUTOMATED DIFFERENTIAL)*[id number] 13:16:00 Test Item Value Reference Range Interpretation Comments WBC (test code = WBC) 9.0 10\S\3/uL 4.5-11.0 RBC (test code = RBC) 5.04 10\S\6/uL 4.30-5.70 HGB (test code = HBG) 14.5 g/dL 12.0-15.5 HCT (test code = HCT) 44.2 % 35.0-44.0 H MCV (test code = MCV) 87.7 fL 81.0-99.0 MCH (test code = MCH) 28.8 pg 27.0-31.0 MCHC (test code = MCHC) 32.8 g/dL 32.0-36.0 RDW (test code = RDW) 13.1 % 11.5-14.5 PLT (test code = PLT) 253 10\S\3/uL 130-400 MPV (test code = MPV) 10.5 fL 9.4-12.4 NEUTROP # (test code = NE#) 5.7 10\S\3/uL 1.6-8.0 LYMPH # (test code = LY#) 2.5 10\S\3/uL 1.1-3.5 MONOCYTE # (test code = MO#) 0.6 10\S\3/uL 0.0-1.1 EOSINOPH # (test code = EO#) 0.2 10\S\3/uL 0.0-0.7 BASOPHIL # (test code = BA#) 0.1 10\S\3/uL 0.0-0.3 IG # (test code = IG#) 0.03 10\S\3/uL 0.00-0.06 NRBC # (test code = NRBC#) 0.00 10\S\3/uL 0.00-0.01 NEUTROPH % (test code = NE%) 62.8 % 35.0-73.0 LYMPH % (test code = LY%) 27.5 % 20.0-55.0 MONO % (test code = MO%) 6.7 % 2.5-10.0 EOSINOPH % (test code = EO%) 2.1 % 0.0-5.0 BASOPHIL % (test code = BA%) 0.6 % 0.0-2.0 IG % (test code = IG%) 0.3 % 0.0-0.8 NRBC% (test code = NRBC%) 0.0 % 0.0-0.2 MANDIFF (test code = WMDIFF) NO NO RBC MORPH (test code = NORMAL WRBCMOR)
--- NOTE | 2020-10-05 16:07 | RAD REPORT ---
EXAM DESCRIPTION: CT - CTFBWCON CLINICAL HISTORY: Facial pain;Swelling COMPARISON: No comparisons TECHNIQUE: Axial 2 mm thick images of the face were obtained with sagittal and coronal reconstructio n images. All CT scans are performed using dose optimization technique as appropriate and may include automated exposure control or mA/KV adjustment according to patient size. FINDINGS: No acute facial bone fracture is seen.The mandible is intact. Mild soft tissue swelling is seen involving the left face. Several dental caries is are present bilaterally. No odontogenic absce ss is seen. The globes and orbital contents are grossly unremarkable.Mild mucosal thickening of the inferior maxi llary antra. IMPRESSION: Multiple dental caries are present.Soft tissue swelling is seen the left face. No clearl y defined odontogenic abscess evident.
--- NOTE | 2020-10-05 16:14 | EDPHYS ---
Physician Documentation [facility] Name: Arianne Beaver Age: 44 yrs Sex: Female : 1975 Arrival Date: 10/05/2020 Time: 13:01 Bed 27 Private MD: Tk Ordaz HPI: 10/05 16:19 This 44 yrs old Female presents to ER via Ambulatory with complaints of kb Facial Swelling. 16:19 the patient presents with a swollen area of the left cheek. Description: swollen. kb Onset: The symptoms/episode began/occurred this morning. Possible cause(s): unknown. Associated signs and symptoms: Pertinent positives: swelling, Pertinent negatives: discharge, drainage, erythema, foreign body sensation, fever, headache, nausea, shortness of breath, vomiting. Modifying factors: the symptoms are alleviated by nothing, the symptoms are aggravated by nothing. Severity of symptoms: At their worst the symptoms were moderate, in the emergency department the symptoms are unchanged. The patient has not experienced similar symptoms in the past. The patient has not recently seen a physician. Pt reports she woke up with swelling to left cheek this morning. Denies tooth pain. 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 - Social history:: Smoking status: Patient reports the use of cigarette tobacco products, smokes one-half pack cigarettes per day. ROS: 16:18 Constitutional: Negative for fever, chills, and weight loss. kb 16:18 Skin: Positive for swelling, of the left cheek. 16:18 All other systems are negative. Exam: 16:18 Constitutional: This is a well developed, well nourished patient who is awake, alert, kb and in no acute distress. Head/Face: Normocephalic, atraumatic. ENT: Moist Mucous membranes Cardiovascular: Regular rate and rhythm with a normal S1 and S2. No gallops, murmurs, or rubs. No pulse deficits. Respiratory: Respirations even and unlabored. No increased work of breathing, no retractions or nasal flaring. MS/ Extremity: Pulses equal, no cyanosis. Neurovascular intact. Full, normal range of motion. Neuro: Awake and alert, GCS 15, oriented to person, place, time, and situation. Moves all extremities. Normal gait. Psych: Awake, alert, with orientation to person, place and time. Behavior, mood, and affect are within normal limits. 16:18 Skin: Appearance: normal except for affected area, Color: normal in color, Temperature: normal temperature, swelling, noted on the left cheek, that are mild, that are moderate. Vital Signs: 13:40 BP 154 / 106; Pulse 69; Resp 17; Temp 98.4; Pulse Ox 99% on R/A; Weight 71.21 kg; jl7 Height 5 ft. 4 in. (162.56 cm); Pain 6/10; 16:05 BP 178 / 97; Pulse 69; Pulse Ox 99% on R/A; ap3 13:40 Body Mass Index 26.95 (71.21 kg, 162.56 cm) jl7 MDM: 15:25 Patient medically screened. [facility] 16:13 Data reviewed: vital signs, nurses notes. Data interpreted: Pulse oximetry: on room air kb is 99 %. Interpretation: normal. Counseling: I had a detailed discussion with the patient and/or guardian regarding: the historical points, exam findings, and any diagnostic results supporting the discharge/admit diagnosis, radiology results, the need for outpatient follow up, a family practitioner, to return to the emergency department if symptoms worsen or persist or if there are any questions or concerns that arise at home. 10/05 16:13 Order name: CREATININE WHOLE BLOOD; Complete Time: 16:16 EDMS 10/05 15:34 Order name: CT Facial Bones W/ Con \T\ Mpr; Complete Time: 16:09 kb 10/05 15:34 Order name: IV Start; Complete Time: 15:41 kb Administered Medications: No medications were administered Disposition Summary: 10/05/20 16:14 Discharge Ordered Location: Home kb Condition: Stable kb Diagnosis - Local infection of the skin and subcutaneous tissue, unspecified kb Followup: kb - With: Emergency Department - When: As needed - Reason: Worsening of condition Followup: kb - With: Private Physician - When: 2 - 3 days - Reason: Recheck today's complaints, Continuance of care, Re-evaluation by your physician Discharge Instructions: - Discharge Summary Sheet kb - Cellulitis, Adult, [id number] kb Forms: - Medication Reconciliation Form kb - Thank You Letter kb - Antibiotic Education kb - Prescription Opioid Use kb - Work release form ap3 Prescriptions: - Cephalexin 500 mg Oral Capsule - take 1 capsule by ORAL route every 8 hours for 10 days; 30 capsule; Refills: 0, kb Product Selection Permitted Addendum: 10/06/2020 18:46 Co-signature as Attending Physician, Tk Borja MD I agree with the assessment and c jeong plan of care. Signatures: Dispatcher [employer] EDSC Carolyn Castro, PERINATAL DIRECTOR-C PERINATAL DIRECTOR-Tk Hameed MD MD cha Leal, Jahala, RN RN jl7 Corrections: (The following items were deleted from the chart) 10/05 13:42 13:41 PSHx: hysterectomy; jl7 jl7
--- NOTE | 2020-10-05 16:14 | ER ---
Nurse's Notes [facility] Name: Arianne Beaver Age: 44 yrs Sex: Female : 1975 Arrival Date: 10/05/2020 Time: 13:01 Bed 27 Private MD: Diagnosis: Local infection of the skin and subcutaneous tissue, unspecified Presentation: 10/05 13:40 Chief complaint: Patient states: Woke this morning with swelling and pain to left side jl7 of face, denies tooth pain. Coronavirus screen: Client denies travel out of the [place] in the last 14 days. At this time, the client does not indicate any symptoms associated with coronavirus-19. Ebola Screen: No symptoms or risks identified at this time. Initial Sepsis Screen: Does the patient meet any 2 criteria? No. Patient's initial sepsis screen is negative. Does the patient have a suspected source of infection? No. Patient's initial sepsis screen is negative. Risk Assessment: Do you want to hurt yourself or someone else? Patient reports no desire to harm self or others. Onset of symptoms was October 05, 2020. 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 - Social history:: Smoking status: Patient reports the use of cigarette tobacco products, smokes one-half pack cigarettes per day. Screenin:30 Abuse screen: Denies threats or abuse. Nutritional screening: No deficits noted. ap3 Tuberculosis screening: No symptoms or risk factors identified. Fall Risk None identified. Assessment: 15:28 General: Appears in no apparent distress. comfortable, Behavior is calm, cooperative, ap3 appropriate for age. Pain: Complains of pain in left cheek Pain currently is 6 out of 10 on a pain scale. Pain began suddenly, this morning. Neuro: Level of Consciousness is awake, alert, obeys commands, Oriented to person, place, time, situation, none Gait is steady. Cardiovascular: Capillary refill < 3 seconds. Respiratory: Airway is patent Respiratory effort is even, unlabored, Respiratory pattern is regular, symmetrical. GI: No signs and/or symptoms were reported involving the gastrointestinal system. : No signs and/or symptoms were reported regarding the genitourinary system. EENT: Reports pain in left cheek Denies nasal congestion, nasal discharge, difficulty swallowing. Vital Signs: 13:40 BP 154 / 106; Pulse 69; Resp 17; Temp 98.4; Pulse Ox 99% on R/A; Weight 71.21 kg; jl7 Height 5 ft. 4 in. (162.56 cm); Pain 6/10; 16:05 BP 178 / 97; Pulse 69; Pulse Ox 99% on R/A; ap3 13:40 Body Mass Index 26.95 (71.21 kg, 162.56 cm) jl7 ED Course: 13:01 Patient arrived in ED. as 13:41 Triage completed. jl7 13:41 Arm band placed on right wrist. jl7 15:05 Mary Bailey RN is Primary Nurse. ap3 15:22 Carolyn Castro FNP-C is PHCP. ap3 15:22 Tk Borja MD is Attending Physician. ap3 15:30 Patient has correct armband on for positive identification. Bed in low position. Call ap3 light in reach. Side rails up X 1. Pulse ox on. NIBP on. Door closed. 15:41 Inserted saline lock: 20 gauge in right antecubital area, using aseptic technique. ap3 Blood collected. 15:55 CT Facial Bones W/ Con \T\ Mpr In Process Unspecified. EDMS 16:26 IV discontinued, intact, bleeding controlled, No redness/swelling at site. Pressure ap3 dressing applied. 16:26 No provider procedures requiring assistance completed. ap3 Administered Medications: No medications were administered Outcome: 16:14 Discharge ordered by . kb 16:26 Discharged to home ambulatory. ap3 16:26 Condition: good 16:26 Discharge instructions given to patient, Instructed on discharge instructions, follow up and referral plans. medication usage, Demonstrated understanding of instructions, follow-up care, medications, Prescriptions given X 1. 16:32 Patient left the ED. ap3 Signatures: Dispatcher [employer] EDMS Carolyn Castro FNP-C FNP-Jumana Cervantes Jahala, RN RN jl7 Mary Bailey RN RN ap3 Corrections: (The following items were deleted from the chart) 13:42 13:41 PSHx: hysterectomy; west jl7
[2020-10-05 17:01] VITALS: TEMP 98.4; O2SAT 99
[2020-10-05 17:02] VITALS: BP 178/97
== END 2020-10-05 16:32 | disposition home or self-care (01) ==
LOC: ER 12:59
DX: L08.9 Local infection of the skin and subcutaneous tissue, unspecified (principal); I10 Essential (primary) hypertension; F17.210 Nicotine dependence, cigarettes, uncomplicated
CPT/HCPCS: 70487; 76377; 82565; 99284; Q9967

== ENCOUNTER 2021-12-07 08:48 | Emergency (ER) | payer SELFPAY ==
--- OUTSIDE RECORDS SUMMARY | 2021-12-07 08:51 | XMS REPORT | Continuity of Care Document ---
:1975 Author Organization [facility] t Address [address] [place] [address] Care Team Providers Name Role Phone PCP, PATIENT DOES NOT HAVE A Primary Care Physician Unavaila ANNA Dias Attending Clinician Unavailable Anna Vela DO Attending Clinician ADEOLA, DR DUGGAN Attending Clinician Unavailable DAVID LAZARO Attending Clinician Unavailable DR JUNE DUKES Attending Clinician Unavailable ANNA VELA Admitting Clinician [facility] Admitting Clinician Unavailable DAVID LAZARO Admitting Clinician Unavailable DR JUNE DUKES Admitting Clinician Unavailable Problems Condition Condition Condition Status Onset Resolution Last Treating Co mments Source Name Details Category Date Date Treatment Clinician Date No known No known Disease Unive rs active active ity of problems problems [facility] Allergies, Adverse Reactions, Alerts Allergy Allergy Status Severity Reaction(s) Onset Inactive Treating Comm ents Source Name Type Date Date Clinician NO KNOWN Drug Active Univers ALLERGIE Class ity of S [facility] Social History Social Habit Start Date Stop Date Quantity Comments Source Exposure to 2021-09-17 2021-09-27 Not sure [facility] SARS-CoV-2 (event) 00:00:00 11:36:00 Medica l Branch Sex Assigned At [birth year] [facility] 00:00:00 00:00:00 [facility] Smoking Status Start Date Stop Date Source Unknown if ever smoked [facility] Medications Ordered Filled Start Stop Current Ordering Indication Dosage Frequency Signature Comments Components Source Medication Medication Date Date Medication? Clinician (SIG) Name Name No known No Univers medications 09-27 ity of 10:23: [place] 39 [facility] Vital Signs Vital Name Observation Time Observation Value Comments Source Systolic blood 2021-09-27 15:26:00 228 mm[Hg] Univer sity of pressure [facility] Diastolic blood 2021-09-27 15:26:00 129 mm[Hg] Unive rsity of [facility] Heart rate 2021-09-27 15:26:00 87 /min [facility] Body temperature 2021-09-27 15:26:00 36.83 Sarah [facility] Respiratory rate 2021-09-27 15:26:00 18 /min [facility] Body weight 2021-09-27 15:26:00 68.947 kg [facility] Oxygen saturation in 2021-09-27 15:26:00 99 /min [facility] Arterial blood by [facility] Pulse oximetry [place] Procedures Procedure Date / Time Performed Performing Clinician Sourc e [place] APPLY LONG ARM 2021-09-27 16:55:48 Anna Vela [facility] SPLINT [facility] XR ELBOW <3 VW LEFT 2021-09-27 15:51:57 Anna Vela [facility] NOTICE OF PRIVACY 2021-09-27 15:22:09 Doctor Unassigned, No [facility] PRACTICES Name [facility] CONSENT/REFUSAL FOR 2021-09-27 15:20:15 Doctor Unassigned, [facility] AND Name [facility] TREATMENT Encounters Start End Encounter Admission Attending Care Care Encounter Source Date/Time Date/Time Type Type Clinicians Facility Department ID 2021-09-27 2021-09-27 Emergency X LASHANDA VELA ERT [id number] Univers 10:24:00 12:05:00 ANNA hickey [facility] 2021-09-27 2021-09-27 Emergency LASHANDA Vela [id number] Univers 10:24:00 12:05:00 Anna RAMOS [id number] ity [facility] [id number] [facility] [id number] [facility] 084 Branch 2017-04-20 2017-04-20 Outpatient C ADEOLA [facility] RAD [id number] [id number] [facility] 14:21:00 23:59:00 [facility] Results Test Description Test Time Test Comments Results Result Sour e Comments MRI SPINE LUMBAR 2017-04-20 MRI Lumbar Spine without W/O CONTRAST*WW* 15:53:38 contrastLocation code: [id number]: M54.16 - Radiculopathy, lumbar regionCOMPARISON: None.Technique: Multiplanar [...] VIEW 2016-07-08 Portable AP chest, 1 PORTABLE *WW* 17:00:10 viewLocation Code: [id number] HISTORY: Cough, shortness of breathCOMPARISON: NoneCOMMENT: The [...] 1.0 INR) INRH (test code = SUGGESTED THERAPEUTIC INRH) RANGE FOR INR: 2.5 - 3.5 For [...] Order Code is ANTI-XA BASIC METABOLIC PANEL *WW*2016-06-14 13:28:00 Test Item Value Reference Range Interpretation [...] 09D) 8.5 mg/dL 8.3-9.5 CBC (INCLUDES AUTOMATED DIFFERENTIAL)*[id number] 13:16:00 Test Item Value Reference Range Interpretation [...]
[2021-12-07] MEDS ORDERED: HYDROCODONE/APAP 10/325 TAB ONE (09:47)
--- NOTE | 2021-12-07 11:09 | RAD REPORT ---
EXAM DESCRIPTION: RAD - Knee Right 3 View - 12/07/2021 10:20 am CLINICAL HISTORY: PAIN, not otherwise specified COMPARISON: <Comparisons>None. FINDINGS: No fracture, dislocation or periosteal reaction.No joint effusion seen. No joint space tony rowing. Minimal spurring changes are seen along the articular margins of the patella and along the me dial tibial plateau. No foreign body or other soft tissue abnormality. IMPRESSION: Mild degenerative changes involving the medial compartment and patella. No acute bone or joint finding. Clinical concerns for internal derangement or occult bony injury could be further assessed with MR im aging.
--- NOTE | 2021-12-07 11:13 | ER ---
Nurse's Notes [facility] Name: Arianne Beaver Age: 45 yrs Sex: Female : 1975 Arrival Date: 12/07/2021 Time: 08:50 Bed 8 Private MD: Diagnosis: Contusion of right knee Presentation: 12/07 09:20 Chief complaint: Patient states: R knee pain/swelling since 10 PM last night. Tripped ll1 over a bike. Coronavirus screen: Vaccine status: Patient reports being unvaccinated. Client denies travel out of the [place] in the last 14 days. At this time, the client does not indicate any symptoms associated with coronavirus-19. Ebola Screen: Patient denies travel to an Ebola-affected area in the 21 days before illness onset. Initial Sepsis Screen: Does the patient meet any 2 criteria? No. Patient's initial sepsis screen is negative. Does the patient have a suspected source of infection? No. Patient's initial sepsis screen is negative. Risk Assessment: Do you want to hurt yourself or someone else? Patient reports no desire to harm self or others. Onset of symptoms was December 06, 2021. 09:20 Method Of Arrival: Ambulatory 1 09:20 Acuity: ANALILIA 4 ll1 Triage Assessment: 09:21 General: Appears uncomfortable, Behavior is calm, cooperative, appropriate for age. ll1 Pain: Complains of pain in R knee Pain currently is 9 out of 10 on a pain scale. Quality of pain is described as aching. Musculoskeletal: Reports pain in R knee. Historical: - Allergies: 09:19 No Known Allergies; ll1 - PMHx: 09:19 Hypertensive disorder; ll1 - PSHx: 09:19 Total abdominal hysterectomy; ll1 - Immunization history:: Client reports having NOT received the Covid vaccine. - Social history:: Smoking status: Patient reports the use of cigarette tobacco products, smokes one-half pack cigarettes per day. Vital Signs: 09:20 BP 208 / 115; Pulse 84; Resp 17; Temp 98.1; Pulse Ox 100% ; Weight 73.48 kg; Height 5 ll1 ft. 4 in. (162.56 cm); Pain 9/10; 09:20 Body Mass Index 27.81 (73.48 kg, 162.56 cm) 1 ED Course: 08:50 Patient arrived in ED. rg4 09:02 Noam Peterson NP is PHCP. pm1 09:02 Dennis Piepr MD is Attending Physician. pm1 09:14 Arm band placed on Patient placed in an exam room, on a stretcher. ll1 09:16 Leoncio Mcdonald, RN is Primary Nurse. bp 09:21 Triage completed. ll1 Administered Medications: 09:43 Drug: Bishop (HYDROcodone-acetaminophen) 10 mg-325 mg 1 tabs Route: PO; bp Outcome: 11:13 Discharge ordered by . pm1 12:23 Patient left the ED. bp Signatures: Noam Peterson NP FURNITURE CRATER pm1 Paola Hair rg4 Leoncio Mcdonald, RN RN bp Marc Mandujano RN RN [facility]
--- NOTE | 2021-12-07 11:14 | EDPHYS ---
Physician Documentation [facility] Name: Arianne Beaver Age: 45 yrs Sex: Female : 1975 Arrival Date: 12/07/2021 Time: 08:50 Bed 8 Private MD: ED Physician Dennis Piper HPI: 12/07 09:29 This 45 yrs old Female presents to ER via Ambulatory with complaints of Fall Injury, pm1 Knee Injury. 09:29 The patient presents with pain, that is acute. The complaints affect the right knee. pm1 Context: The problem was sustained at home, resulted from the patient tripping, the patient can fully bear weight, the patient is able to ambulate, Problem is a result from a previous injury: No. Onset: The symptoms/episode began/occurred yesterday. Modifying factors: The symptoms are alleviated by remaining still, the symptoms are aggravated by Touching her knee. Associated signs and symptoms: Pertinent positives: swelling, Pertinent negatives calf tenderness, fever, numbness, tingling. Treatment prior to arrival includes: icing the affected extremity, over the counter medications, NSAIDS. Severity of symptoms: in the emergency department the symptoms are unchanged. The patient has not experienced similar symptoms in the past. The patient has not recently seen a physician. Historical: - Allergies: 09:19 No Known Allergies; ll1 - PMHx: 09:19 Hypertensive disorder; ll1 - PSHx: 09:19 Total abdominal hysterectomy; ll1 - Immunization history:: Client reports having NOT received the Covid vaccine. - Social history:: Smoking status: Patient reports the use of cigarette tobacco products, smokes one-half pack cigarettes per day. ROS: 09:29 Constitutional: Negative for fever, chills, and weight loss, Cardiovascular: Negative pm1 for chest pain, palpitations, and edema, Respiratory: Negative for shortness of breath, cough, wheezing, and pleuritic chest pain. 09:29 Skin: Negative for injury, rash, and discoloration. 09:29 MS/extremity: Positive for pain, swelling, tenderness, of the right knee. 09:29 All other systems are negative. Exam: 09:29 Constitutional: This is a well developed, well nourished patient who is awake, alert, pm1 and in no acute distress. Head/Face: Normocephalic, atraumatic. 09:29 Skin: Warm, dry with normal turgor. Normal color with no rashes, no lesions, and no evidence of cellulitis. 09:29 Cardiovascular: Exam negative for acute changes, Rate: normal, Rhythm: regular, Pulses: no pulse deficits are appreciated. 09:29 Respiratory: Exam negative for acute changes, respiratory distress, shortness of breath. 09:29 Musculoskeletal/extremity: Extremities: grossly normal except: noted in the right knee: swelling, tenderness, There is no evidence of decreased ROM, deformity. 09:29 Neuro: Exam negative for acute changes, Orientation: is normal, Mentation: is normal, Motor: is normal, moves all fours. Vital Signs: 09:20 BP 208 / 115; Pulse 84; Resp 17; Temp 98.1; Pulse Ox 100% ; Weight 73.48 kg; Height 5 ll1 ft. 4 in. (162.56 cm); Pain 9/10; 09:20 Body Mass Index 27.81 (73.48 kg, 162.56 cm) ll1 MDM: 09:20 Patient medically screened. pm1 11:12 Data reviewed: vital signs. Data interpreted: Pulse oximetry: on room air is 100 %. pm1 Interpretation: normal. Counseling: I had a detailed discussion with the patient and/or guardian regarding: the historical points, exam findings, and any diagnostic results supporting the discharge/admit diagnosis, radiology results, the need for outpatient follow up, to return to the emergency department if symptoms worsen or persist or if there are any questions or concerns that arise at home. 11:17 ED course: [place] reviewed. pm1 12/07 09:32 Order name: Knee Right 3 View XRAY pm1 12/07 11:10 Order name: RAD; Complete Time: 11:11 EDMS 12/07 09:32 Order name: Ice pack; Complete Time: 09:34 pm1 Administered Medications: 09:43 Drug: Antelope (HYDROcodone-acetaminophen) 10 mg-325 mg 1 tabs Route: PO; bp Disposition: 16:12 Co-signature as Attending Physician, Dennis Piper MD. rn Disposition Summary: 12/07/21 11:13 Discharge Ordered Location: Home pm1 Problem: new pm1 Symptoms: have improved pm1 Condition: Stable pm1 Diagnosis - Contusion of right knee pm1 Followup: pm1 - With: Emergency Department - When: As needed - Reason: Worsening of condition Followup: pm1 - With: Private Physician - When: 2 - 3 days - Reason: Recheck today's complaints, Continuance of care, Re-evaluation by your physician Discharge Instructions: - Discharge Summary Sheet pm1 - Contusion pm1 - Crutch Use, Adult pm1 - How to Use a Knee Immobilizer pm1 - Acute Knee Pain, Adult pm1 Forms: - Medication Reconciliation Form pm1 - Thank You Letter pm1 - Antibiotic Education pm1 - Prescription Opioid Use pm1 Prescriptions: - Tylenol-Codeine #3 300 mg-30 mg Oral - take 2 tablet by ORAL route every 6 hours As needed; 20 tablet; Refills: 0, pm1 Product Selection Permitted Signatures: Dispatcher [employer] EDMS Dennis Piper MD MD rn Marinas, Patrick, NP DIRECTOR FRAUD pm1 Leoncio Mcdonald, RN RN Marc Plummer RN RN 1
[2021-12-07 13:15] VITALS: BP 208/115; TEMP 98.1; O2SAT 100
== END 2021-12-07 12:23 | disposition home or self-care (01) ==
LOC: ER 08:48
DX: S80.01XA Contusion of right knee, initial encounter (principal); I10 Essential (primary) hypertension; F17.210 Nicotine dependence, cigarettes, uncomplicated
CPT/HCPCS: 99282

== ENCOUNTER 2022-10-13 10:51 | Emergency (ER) | payer OTHER, SELFPAY ==
--- OUTSIDE RECORDS SUMMARY | 2022-10-13 10:55 | XMS REPORT | Continuity of Care Document ---
:1975 Author Organization [facility] t Address [address] [place] [address] [address] [place] [address] Care Team Providers Name Role Phone PCP, PATIENT DOES NOT HAVE A Primary Care Physician Unavaila ANNA Dias Attending Clinician Unavailable Anna Vela DO Attending Clinician ADEOLA, DR DUGGAN Attending Clinician Unavailable DAVID LAZARO Attending Clinician Unavailable DR JUNE DUKES Attending Clinician Unavailable ANNA VELA Admitting Clinician [facility] Admitting Clinician Unavailable DAVID LAZARO Admitting Clinician Unavailable DR JUNE DUKES Admitting Clinician Unavailable Problems Condition Condition Condition Status Onset Resolution Last Treating Co mments Source Name Details Category Date Date Treatment Clinician Date No known No known Disease Unive rs active active ity of problems problems [facility] Allergies, Adverse Reactions, Alerts Allergy Allergy Status Severity Reaction(s) Onset Inactive Treating Comm ents Source Name Type Date Date Clinician NO KNOWN Drug Active Univers ALLERGIE Class ity of S [facility] Social History Social Habit Start Date Stop Date Quantity Comments Source Exposure to 2021-09-17 2021-09-27 Not sure [facility] SARS-CoV-2 (event) 00:00:00 11:36:00 Medica l Branch Sex Assigned At [birth year] [facility] 00:00:00 00:00:00 [facility] Smoking Status Start Date Stop Date Source Unknown if ever smoked [facility] Medications Ordered Filled Start Stop Current Ordering Indication Dosage Frequency Signature Comments Components Source Medication Medication Date Date Medication? Clinician (SIG) Name Name No known No Univers medications 6-27 ity of 10:23: [place] 39 [facility] Vital Signs Vital Name Observation Time Observation Value Comments Source Systolic blood 2021-09-27 15:26:00 228 mm[Hg] Univer sity of pressure [facility] Diastolic blood 2021-09-27 15:26:00 129 mm[Hg] Unive rsity [facility] Heart rate 2021-09-27 15:26:00 87 /min [facility] Body temperature 2021-09-27 15:26:00 36.83 Sarah [facility] Respiratory rate 2021-09-27 15:26:00 18 /min [facility] Body weight 2021-09-27 15:26:00 68.947 kg [facility] Oxygen saturation in 2021-09-27 15:26:00 99 /min [facility] Arterial blood by [facility] Pulse oximetry [place] Procedures Procedure Date / Time Performed Performing Clinician Sourc e [place] APPLY LONG ARM 2021-09-27 16:55:48 Anna Vela [facility] SPLINT [facility] XR ELBOW <3 VW LEFT 2021-09-27 15:51:57 Anna Vela [facility] NOTICE OF PRIVACY 2021-09-27 15:22:09 Doctor Unassigned, No Univ [facility] PRACTICES Name [facility] CONSENT/REFUSAL FOR 2021-09-27 15:20:15 Doctor Unassigned, [facility] AND Name [facility] TREATMENT Encounters Start End Encounter Admission Attending Care Care Encounter Source Date/Time Date/Time Type Type Clinicians Facility Department ID 2021-09-27 2021-09-27 Emergency X LASHANDA VELA ERT [id number] [facility] 10:24:00 12:05:00 ANNA hickey [facility] 2021-09-27 2021-09-27 Emergency LASHANDA Vela [id number] [facility] 10:24:00 12:05:00 Anna RAMOS [id number] ity [facility] [id number] [facility] [id number] [facility] 084 Branch 2017-04-20 2017-04-20 Outpatient C ADEOLA [facility] RAD [id number] [facility] 14:21:00 23:59:00 [facility] Results Test Description Test Time Test Comments Results Result Sour e Comments MRI SPINE LUMBAR 2017-04-20 MRI Lumbar Spine without W/O CONTRAST*WW* 15:53:38 contrastLocation code: [id number]: M54.16 - Radiculopathy, lumbar regionCOMPARISON: None.Technique: Multiplanar [...] chest, 1 PORTABLE *WW* 17:00:10 viewLocation Code: [id number] HISTORY: Cough, shortness of breathCOMPARISON: NoneCOMMENT: The [...] 09D) 8.5 mg/dL 8.3-9.5 CBC (INCLUDES AUTOMATED DIFFERENTIAL)*[id number] 13:16:00 Test Item Value Reference Range Interpretation [...]
[2022-10-13] MEDS ORDERED: METOPROLOL TAR 50 MG TAB ONE (11:22)
[2022-10-13] MEDS ORDERED: HYDROCODONE/APAP 5/325 MG TAB ONE (11:22)
[2022-10-13] MEDS ORDERED: KETOROLAC 30 MG/ML INJ ONE (11:22)
--- NOTE | 2022-10-13 11:54 | RAD REPORT ---
EXAM DESCRIPTION: RAD - Hand Right 3 View - 10/13/2022 11:42 am CLINICAL HISTORY: Swelling;Smash injury COMPARISON: No comparisons TECHNIQUE: Right hand, 3 views. FINDINGS: No fracture is identified. There is no dislocation or periosteal reaction noted. Soft tissue swelling around the second and thir d digits. No foreign body or other soft tissue abnormality. IMPRESSION: Swelling as above without acute osseous abnormalities
--- NOTE | 2022-10-13 12:59 | EDPHYS ---
Physician Documentation [facility] Name: Arianne Beaver Age: 46 yrs Sex: Female : 1975 Arrival Date: 10/13/2022 Time: 10:51 Bed 14 Private MD: ED Physician Gerson Reyna HPI: 10/13 11:05 This 46 yrs old Female presents to ER via Ambulatory with complaints of Hand Pain, Hand snw Swelling. 11:05 The patient or guardian reports a contusion, decreased range of motion, injury, pain, snw swelling, tenderness. The complaints affect the right middle finger. Context: The problem was sustained outdoors, resulted from slip and fall. Onset: The symptoms/episode began/occurred suddenly, last night. Associated signs and symptoms: The patient has no apparent associated signs or symptoms. The patient has not experienced similar symptoms in the past. It is unknown whether or not the patient has recently seen a physician. no LOC . OFFICE DIRECTOR: 14:16 LMP N/A - iw Historical: - Allergies: 11:03 No Known Allergies; kl - PMHx: 11:03 Hypertensive disorder; kl - PSHx: 11:03 Total abdominal hysterectomy; kl - Immunization history:: Client reports having NOT received the Covid vaccine. - Social history:: Smoking status: Patient reports the use of cigarette tobacco products, smokes one-half pack cigarettes per day. ROS: 11:04 Constitutional: Negative for fever, chills, and weight loss, Eyes: Negative for injury, snw pain, redness, and discharge, ENT: Negative for injury, pain, and discharge, Neck: Negative for injury, pain, and swelling, Cardiovascular: Negative for chest pain, palpitations, and edema, Respiratory: Negative for shortness of breath, cough, wheezing, and pleuritic chest pain, Abdomen/GI: Negative for abdominal pain, nausea, vomiting, diarrhea, and constipation, Back: Negative for injury and pain, : Negative for injury, bleeding, discharge, and swelling, Skin: Negative for injury, rash, and discoloration, Neuro: Negative for headache, weakness, numbness, tingling, and seizure, Psych: Negative for depression, anxiety, suicide ideation, homicidal ideation, and hallucinations. 11:04 MS/extremity: Positive for injury or acute deformity, decreased range of motion, pain, swelling, of the right middle finger. Exam: 11:03 Constitutional: This is a well developed, well nourished patient who is awake, alert, snw and in no acute distress. Head/Face: Normocephalic, atraumatic. Eyes: Pupils equal round and reactive to light, extra-ocular motions intact. Lids and lashes normal. Conjunctiva and sclera are non-icteric and not injected. Cornea within normal limits. Periorbital areas with no swelling, redness, or edema. Cardiovascular: Regular rate and rhythm with a normal S1 and S2. No gallops, murmurs, or rubs. Normal PMI, no JVD. No pulse deficits. Respiratory: Lungs have equal breath sounds bilaterally, clear to auscultation and percussion. No rales, rhonchi or wheezes noted. No increased work of breathing, no retractions or nasal flaring. Back: No spinal tenderness. No costovertebral tenderness. Full range of motion. Skin: Warm, dry with normal turgor. Normal color with no rashes, no lesions, and no evidence of cellulitis. Neuro: Awake and alert, GCS 15, oriented to person, place, time, and situation. Cranial nerves II-XII grossly intact. Motor strength 5/5 in all extremities. Sensory grossly intact. Cerebellar exam normal. Normal gait. Psych: Awake, alert, with orientation to person, place and time. Behavior, mood, and affect are within normal limits. 11:03 Musculoskeletal/extremity: Extremities: grossly normal except: noted in the dorsal aspect of distal phalanx of right middle finger, dorsal aspect of middle phalanx of right middle finger, dorsal aspect of proximal phalanx of right middle finger, dorsum of right hand and right middle fingernail: contusion, decreased ROM, swelling, tenderness, ROM: limited active range of motion due to pain, limited passive range of motion due to pain, in the dorsal aspect of distal phalanx of right middle finger, dorsal aspect of proximal phalanx of right middle finger and right middle fingernail, Circulation is intact in all extremities. Sensation intact. Vital Signs: 11:03 BP 220 / 127; Pulse 84; Resp 18; Temp 98.4; Pulse Ox 99% ; Weight 73.48 kg; Height 5 kl ft. 4 in. ; Pain 9/10; 12:00 Pain 5/10; nj1 12:00 Pain 5/10; nj1 12:00 BP 191 / 115; Pulse 58; Resp 18; Pulse Ox 100% on R/A; Pain 5/10; nj1 12:44 BP 163 / 101; Pulse 53; Resp 17; Pulse Ox 97% on R/A; Pain 5/10; nj1 14:16 BP 175 / 84; Pulse 60; Resp 16; Pulse Ox 98% on R/A; iw 11:03 Body Mass Index 27.81 (73.48 kg, 162.56 cm) kl 11:03 Pain Scale: Adult kl 12:00 Pain Scale: Adult nj1 12:00 Pain Scale: Adult nj1 12:00 Pain Scale: Adult nj1 12:44 Pain Scale: Adult nj1 MDM: 10:59 Patient medically screened. snw 11:03 Differential diagnosis: dislocation, closed fracture, contusion, abrasion, tendonitis. snw Data reviewed: vital signs, nurses notes. I considered the following discharge prescriptions or medication management in the emergency department Medications were administered in the Emergency Department. See JUN. 13:06 Counseling: I had a detailed discussion with the patient and/or guardian regarding: the snw historical points, exam findings, and any diagnostic results supporting the discharge/admit diagnosis, the presence of at least one elevated blood pressure reading (>120/80) during this emergency department visit, radiology results, the need for outpatient follow up, for definitive care, to return to the emergency department if symptoms worsen or persist or if there are any questions or concerns that arise at home. Special discussion: Based on the history and exam findings, there is no indication for further emergent testing or inpatient evaluation. I discussed with the patient/guardian the need to see the orthopedic surgeon for further evaluation of the symptoms. I discussed with the patient/guardian the need to see the primary care provider for further evaluation of the symptoms. 10/13 11:03 Order name: Hand Right 3 View XRAY; Complete Time: 11:55 snw 10/13 11:28 Order name: Misc. Order: please recheck BP in 30 min; Complete Time: 12:03 snw 10/13 11:56 Order name: Volar Wrist Splint; Complete Time: 12:16 snw Administered Medications: 11:07 CANCELLED (Other Intervention Used): cloNIDine PO 0.2 mg PO once snw 11:15 Drug: HYDROcodone-acetaminophen PO 5 mg-325 mg 1 tabs Route: PO; nj1 12:00 Follow up: Pain 5/10 Adult; Response: No adverse reaction; Pain is decreased nj1 11:15 Drug: Metoprolol PO 50 mg Route: PO; nj1 12:00 Follow up: Response: No adverse reaction nj1 11:18 Drug: Ketorolac IM 30 mg Route: IM; Site: left gluteus; nj1 12:00 Follow up: Pain 5/10 Adult; Response: No adverse reaction; Pain is decreased nj1 Disposition: 20:29 Co-signature as Attending Physician, Gerson Reyna MD I reviewed the patient's care rt provided by Advanced Practice Provider \T\ agree w/ the diagnosis \T\ care plan. I personally saw the pt \T\ performed a substantive portion of the visit, incldng all aspects of the (History/Exam/Medical Decision Making). PA/SPECIAL SERVICES COORDINATOR's history reviewed, patient interviewed, and examined. HPI: Patient presents to the ED with continued swelling of the hand after a cat bite. There is swelling noted diffuse on the hand with erythema I agree with assessment and care plan and confirm the diagnosis (es) above. Disposition Summary: 10/13/22 13:02 Discharge Ordered Location: Home(10/13/22 13:02) snw Condition: Stable(10/13/22 13:02) snw Diagnosis - Fall on same level from slipping, tripping and stumbling with subsequent striking snw against object - Contusion of hand snw - Essential (primary) hypertension snw Followup: snw - With: Private Physician - When: 1 week - Reason: Recheck today's complaints, Continuance of care, Re-evaluation by your physician Discharge Instructions: - Discharge Summary Sheet snw - Contusion snw - Cast or Splint Care, Adult snw - Fall Prevention in the Home, Adult snw - Hypertension, Adult snw - RICE Therapy for Routine Care of Injuries snw - DASH Eating Plan snw - Managing Your Hypertension snw - Form - Blood Pressure Record Sheet snw Forms: - Medication Reconciliation Form snw - Thank You Letter snw - Antibiotic Education snw - Prescription Opioid Use snw - Patient Portal Instructions snw - Work release form ll1 Prescriptions: - Mobic 7.5 mg Oral Tablet - take 1 tablet by ORAL route once daily take with food; 20 tablet; Refills: 0, snw Product Selection Permitted Signatures: Dispatcher [employer] EDMS Melvi Mandujano, RN RN Kimberly Jimenez, EXTERIOR DOOR INSTALLER-C EXTERIOR DOOR INSTALLER-Csnw Gerson Reyna MD MD rt Kelly Kay RN RN nj1 Corrections: (The following items were deleted from the chart) 11:07 11:07 cloNIDine PO 0.2 mg PO once ordered. snw snw : 12:58 Observation snw snw 13: 12:58 Dominguez Christineshantanu snw snw 13: 12:58 Telemetry/MedSurg (observation) snw snw 13: 12:58 Stable snw snw 13: 12:58 new snw snw 13: 12:58 have worsened snw snw 13: 12:58 Standard snw snw 13: 12:58 snw snw 13: 12:58 Cellulitis, unspecified - left hand: failed outpatient therapy snw snw 13: 12:58 Bitten by cat snw snw
--- NOTE | 2022-10-13 12:59 | ER ---
Nurse's Notes [facility] Name: Arianne Beaver Age: 46 yrs Sex: Female : 1975 Arrival Date: 10/13/2022 Time: 10:51 Bed 14 Private MD: Diagnosis: Fall on same level from slipping, tripping and stumbling with subsequent striking against object;Contusion of hand;Essential (primary) hypertension Presentation: 10/13 11:03 Chief complaint: Patient states: Slipped last night. R hand pain. 3rd digit painful and kl swollen. Coronavirus screen: Vaccine status: Patient reports receiving the 2nd dose of the covid vaccine. Client denies travel out of the [place] in the last 14 days. At this time, the client does not indicate any symptoms associated with coronavirus-19. Ebola Screen: Patient denies travel to an Ebola-affected area in the 21 days before illness onset. Initial Sepsis Screen: Does the patient meet any 2 criteria? No. Patient's initial sepsis screen is negative. Does the patient have a suspected source of infection? Yes: Bone or joint infection. Risk Assessment: Do you want to hurt yourself or someone else? Patient reports no desire to harm self or others. Onset of symptoms was October 12, 2022. 11:03 Method Of Arrival: Ambulatory kl 11:03 Acuity: ANALILIA 3 kl Triage Assessment: 11:04 General: Appears uncomfortable, Behavior is calm, cooperative, appropriate for age. ll1 Pain: Complains of pain in right middle finger Quality of pain is described as aching, throbbing. Musculoskeletal: Circulation, motion, and sensation intact. Capillary refill < 3 seconds, Swelling present in dorsal aspect of distal phalanx of right middle finger. Injury Description: Bruise. BURNING SUPERVISOR: 14:16 LMP N/A - iw Historical: - Allergies: 11:03 No Known Allergies; kl - PMHx: 11:03 Hypertensive disorder; kl - PSHx: 11:03 Total abdominal hysterectomy; kl - Immunization history:: Client reports having NOT received the Covid vaccine. - Social history:: Smoking status: Patient reports the use of cigarette tobacco products, smokes one-half pack cigarettes per day. Screenin:23 [facility] ED Fall Risk Assessment (Adult) History of falling in the last 3 months, nj1 including since admission No falls in past 3 months (0 pts) Confusion or Disorientation No (0 pts) Intoxicated or Sedated No (0 pts) Impaired Gait No (0 pts) Mobility Assist Device Used No (0 pt) Altered Elimination No (0 pt) Score/Fall Risk Level 0 - 2 = Low Risk Oriented to surroundings, Maintained a safe environment, Hourly rounding (assess needs \T\ fall precautionary measures) done. Abuse screen: Denies threats or abuse. Denies injuries from another. Nutritional screening: No deficits noted. Tuberculosis screening: No symptoms or risk factors identified. Assessment: 11:15 General: Appears in no apparent distress. uncomfortable, Behavior is calm, cooperative, nj1 appropriate for age. 11:15 Pain: Complains of pain in dorsal aspect of distal phalanx of right middle finger Pain nj1 currently is 9 out of 10 on a pain scale. Neuro: Level of Consciousness is awake, alert, obeys commands, Oriented to person, place, time, situation. Cardiovascular: Patient's skin is warm and dry. Respiratory: Airway is patent Respiratory effort is even, unlabored. Derm: Bruising that is dark purple, on dorsal aspect of distal phalanx of right middle finger. Musculoskeletal: Swelling present in right middle finger Reports pain in right middle finger Pain is 9 out of 10 on a pain scale. 12:00 Reassessment: Patient appears in no apparent distress at this time. Patient and/or nj1 family updated on plan of care and expected duration. Pain level reassessed. Patient is alert, oriented x 3, equal unlabored respirations, skin warm/dry/pink. 12:45 Reassessment: Patient appears in no apparent distress at this time. Patient and/or nj1 family updated on plan of care and expected duration. Pain level reassessed. Patient is alert, oriented x 3, equal unlabored respirations, skin warm/dry/pink. Patient states feeling better. 13:08 Reassessment: Not ready for discharge per S Rosa PEREZ. nj1 Vital Signs: 11:03 BP 220 / 127; Pulse 84; Resp 18; Temp 98.4; Pulse Ox 99% ; Weight 73.48 kg; Height 5 kl ft. 4 in. ; Pain 9/10; 12:00 Pain 5/10; nj1 12:00 Pain 5/10; nj1 12:00 BP 191 / 115; Pulse 58; Resp 18; Pulse Ox 100% on R/A; Pain 5/10; nj1 12:44 BP 163 / 101; Pulse 53; Resp 17; Pulse Ox 97% on R/A; Pain 5/10; nj1 14:16 BP 175 / 84; Pulse 60; Resp 16; Pulse Ox 98% on R/A; iw 11:03 Body Mass Index 27.81 (73.48 kg, 162.56 cm) kl 11:03 Pain Scale: Adult kl 12:00 Pain Scale: Adult nj1 12:00 Pain Scale: Adult nj1 12:00 Pain Scale: Adult nj1 12:44 Pain Scale: Adult nj1 ED Course: 10:54 Patient arrived in ED. am2 10:58 Kimberly Lee FNP-C is PHCP. snw 10:58 Gerson Reyna MD is Attending Physician. snw 11:03 Arm band placed on Patient placed in an exam room, on a stretcher. kl 11:04 Triage completed. kl 11:07 Kelly Kay RN is Primary Nurse. nj1 11:15 Patient has correct armband on for positive identification. Bed in low position. Call [facility] light in reach. 11:15 Provided Education on: Fall precautions. nj1 11:44 Hand Right 3 View XRAY In Process Unspecified. EDMS 12:16 Orthoglass splint: Volar splint applied on right arm. ds4 12:56 Rona Dominguez MD is Hospitalizing Provider. snw 14:15 No provider procedures requiring assistance completed. Patient did not have IV access iw during this emergency room visit. Administered Medications: 11:07 CANCELLED (Other Intervention Used): cloNIDine PO 0.2 mg PO once snw 11:15 Drug: HYDROcodone-acetaminophen PO 5 mg-325 mg 1 tabs Route: PO; nj1 12:00 Follow up: Pain 5/10 Adult; Response: No adverse reaction; Pain is decreased nj1 11:15 Drug: Metoprolol PO 50 mg Route: PO; nj1 12:00 Follow up: Response: No adverse reaction nj1 11:18 Drug: Ketorolac IM 30 mg Route: IM; Site: left gluteus; nj1 12:00 Follow up: Pain 5/10 Adult; Response: No adverse reaction; Pain is decreased nj1 Medication: 14:16 VIS not applicable for this client. iw Outcome: 12:58 Decision to Hospitalize by Provider. snw 13:02 Discharge ordered by MD. snw 14:15 Discharged to home ambulatory. iw 14:15 Condition: good 14:15 Discharge instructions given to patient, Instructed on discharge instructions, follow up and referral plans. medication usage, Demonstrated understanding of instructions, follow-up care, medications, Prescriptions given X 1. 14:16 Patient left the ED. Signatures: Dispatcher [employer] EDMS Melvi Mandujano, RN RN Kimberly Jimenez, COMPUTER GRAPHIC DESIGNER-C COMPUTER GRAPHIC DESIGNER-Csnw Lala Conley, RN RN Rancho White ds4 Mary Eldridge am2 Marc Mandujano RN RN ll1 Kelly Kay RN RN nj1
[2022-10-13 15:00] VITALS: BP 125/81; TEMP 98.2; O2SAT 99
== END 2022-10-13 14:16 | disposition home or self-care (01) ==
LOC: ER 10:51
DX: S60.221A Contusion of right hand, initial encounter (principal); W01.10XA Fall on same level from slipping, tripping and stumbling with subsequent striking against unspecified object, initial encounter; I10 Essential (primary) hypertension; F17.210 Nicotine dependence, cigarettes, uncomplicated
CPT/HCPCS: 96372; 99284

== ENCOUNTER 2023-08-29 12:28 | Emergency (ER) | payer OTHER ==
--- OUTSIDE RECORDS SUMMARY | 2023-08-29 12:31 | XMS REPORT | Continuity of Care Document ---
Author Name Unknown Address [address] [facility] [place] [address] [facility] thconnect Address [address] [facility] [address] [place] [address] Care Team Providers Care Window Sash Installer Name Role Phone PCP, PATIENT DOES NOT HAVE A Primary Care Physic marilee ANNA Fraser Attending Clinician Anna Higgins DO Attending Clinician [phone] DR OLGA LIDIA MIR Attending Clinician DAVID Christy Attending Clinician DR JUNE Barnes Attending Clinician ANNA Balderas Admitting Clinician DR OLGA LIDIA Hernandez Admitting Clinician DAVID Christy Admitting Clinician Kel Mason, DR WATKINS Admitting Clinician Elaine toledo Problems Condition Name Condition Details Condition Category Status Onset Date Resolution Date Last Treatment Date Treating Clinician Comments Source No known active problems No known active problems Disease [facility] Allergies, Adverse Reactions, Alerts Allergy Name Allergy Type Status Severity Reaction(s) Onset Date Inactive Date Treating Clinician Comments Source NO KNOWN ALLERGIE S Drug Class Active [facility] Social History Social Habit Start Date Stop Date Quantity Comments Source Exposure to SARS-CoV-2 (event) 2021-09-17 00:00:00 2021-09-27 11:36:00 Not sure [facility] Sex Assigned At 1975 00:00:00 1975 00:00:00 [facility] Smoking Status Start Date Stop Date Source Unknown if ever smoked [facility] Medications Ordered Medication Name Filled Medication Name Start Date Stop Date Current Medication? Ordering Clinician Indication Dosage Frequency Signature (SIG) Comments Components Source No known medications 09-27 10:23: 39 No [facility] Vital Signs Vital Name Observation Time Observation Value Comments Clary reed Systolic blood pressure 2021-09-27 15:26:00 228 mm[Hg] [facility] Diastolic blood pressure 2021-09-27 15:26:00 129 mm[Hg] [facility] Heart rate 2021-09-27 15:26:00 87 /min [facility] Body temperature 2021-09-27 15:26:00 36.83 Sarah [facility] Respiratory rate 2021-09-27 15:26:00 18 /min [facility] Body weight 2021-09-27 15:26:00 68.947 kg [facility] Oxygen saturation in Arterial blood by Pulse oximetry 2021-09-27 15:26:00 99 /min [facility] Procedures Procedure Date / Time Performed Performing Clinicia n Source [place] APPLY LONG ARM SPLINT 2021-09-27 16:55:48 Anna Vela [facility] XR ELBOW <3 VW LEFT 2021-09-27 15:51:57 Svitlana Vela ra [facility] NOTICE OF PRIVACY PRACTICES 2021-09-27 15:22:09 Doctor Unassigned, [place] [facility] CONSENT/REFUSAL FOR DIAGNOSIS AND TREATMENT 2021-09-27 15:20:15 Doctor Unassigned, [place] [facility] Encounters Start Date/Time End Date/Time Encounter Type Admission Type Attending Clinicians Care Facility Care Department Encounter ID Source 2021-09-27 10:24:00 2021-09-27 12:05:00 Emergency X ANNA VELA [facility] ERT [id number] [facility] 2021-09-27 10:24:00 2021-09-27 12:05:00 Emergency Anna Vela [facility] [id number] [facility] 2017-04-20 14:21:00 2017-04-20 23:59:00 Outpatient C OLGA LIDIA [place] [facility] [place] [id number] [facility] Results Test Description Test Time Test Comments Results Resul t Comments Source MRI SPINE LUMBAR W/O CONTRAST*WW* 2017-04-20 15:53:38 MRI Lumbar Spine without contrastLocation code: [id number]: M54.16 - Radiculopathy, lumbar regionCOMPARISON: None.Technique: Multiplanar [...] protrusion at L3-4. XR CHEST 1 VIEW PORTABLE *WW* 2016-07-08 17:00:10 Portable AP chest, 1 viewLocation Code: [id number] HISTORY: Cough, shortness of breathCOMPARISON: NoneCOMMENT: The lungs are clear and well inflated. The costophrenic angles are sharp. Thecardiomediastinal silhouette is unremarkable. The bones are intact.IMPRESSION: No acute abnormality URINE MONOCLONAL *WW*2016-06-15 06:21:00* Test Item Value Reference Range Interpretation Comme nts PREG UR (test code = PGU) NEGATIVE NEGATIVE PRO TIME AND PTT 2016-06-14 13:32:00* Test Item Value Reference Range Interpretation Comme nts PT (test code = TT) 11.7 s 9.8-13.6 INR (test code = INR) 1.0 INRH (test code = INRH) SUGGESTED THERAPEUTIC RANGE FOR INR: 2.5 - 3.5 For Patients with Prosthetic Valves or Patients with recurrent Thromboembolic Events 2.0 - 3.0 For Most Other Applications PTT (test code = PTT) 28.1 s 20.2-38.0 PTTH (test code = PTTH) To monitor the effectiveness of heparin, we offer the Anti-Xa (Heparin Assay). It can be used for either unfractinated or LMW Heparin. Order Code is ANTI-XA BASIC METABOLIC PANEL 2016-06-14 13:28:00* Test Item Value Reference Range Interpretation Comme nts GLUCOSE (test code = 06D) 104 mg/dL [...] 09D) 8.5 mg/dL 8.3-9.5 CBC (INCLUDES AUTOMATED DIFFERENTIAL)*[id number] 13:16:00* Test Item Value Reference Range Interpretation Comme nts WBC (test code = WBC) 9.0 10\S\3/uL [...] NO NO RBC MORPH (test code = WRBCMOR) NORMAL
[2023-08-29] MEDS ORDERED: DOXYCYCLINE 100 MG CAP PO ONE (13:37)
[2023-08-29] MEDS ORDERED: AMOX/K CLAV 875 MG TAB ONE (13:37)
[2023-08-29] MEDS ORDERED: TDAP (DIPHTH,PERTUSS(ACELL),TET VAC) 0.5 ML VIAL IMVAC ONE (13:38)
--- NOTE | 2023-08-29 13:56 | RAD REPORT ---
EXAM DESCRIPTION: RAD - Femur Left - 08/29/2023 1:48 pm CLINICAL HISTORY: Animal bite FINDINGS: Soft tissue laceration. No foreign body seen. No fracture
--- NOTE | 2023-08-29 14:09 | EDPHYS ---
Physician Documentation [facility] Name: Arianne Beaver Age: 47 yrs Sex: Female : 1975 Arrival Date: 08/29/2023 Time: 12:28 Bed 12 Private MD: ED Physician Fernando Hdz HPI: 08/28 13:01 This 47 yrs old Female presents to ER via Ambulatory with complaints of Dog Bite. ms3 13:01 47-year-old female with past medical history of hypertension presents to the emergency ms3 department for left thigh pain status post dog bite on Monday. Patient states her rescue dogs were fighting she tried to break them up and was bitten. Patient states her pain is a 9/10. Patient denies any alleviating or inciting factors. She denies fevers, chills, shortness of breath, nausea, vomiting. Historical: - Allergies: 12:53 No Known Allergies; ll1 - PMHx: 12:53 Hypertensive disorder; ll1 - PSHx: 12:53 Total abdominal hysterectomy; ll1 - Immunization history:: Adult Immunizations up to date. - Infectious Disease History:: Denies. ROS: 13:01 Constitutional: Negative for fever, and chills. Neck: Negative for injury, pain, and ms3 swelling, Cardiovascular: Negative for chest pain, and palpitations. Respiratory: Negative for shortness of breath, cough, wheezing, and pleuritic chest pain, Abdomen/GI: Negative for abdominal pain, nausea, vomiting, diarrhea, and constipation, MS/Extremity: Negative for injury and deformity, 13:01 Skin: Positive for puncture, 13:01 All other systems are negative, Exam: 13:01 Constitutional: This is a well developed, well nourished patient who is awake, alert, ms3 and in no acute distress. Head/Face: Normocephalic, atraumatic. Neck: Trachea midline, no cervical lymphadenopathy. Supple, full range of motion without nuchal rigidity, or vertebral point tenderness. No Meningismus. Chest/axilla: Normal chest wall appearance and motion. Nontender with no deformity. Cardiovascular: Regular rate and rhythm with a normal S1 and S2. No gallops, murmurs, or rubs. Normal PMI, no JVD. No pulse deficits. Respiratory: Lungs have equal breath sounds bilaterally, clear to auscultation and percussion. No rales, rhonchi or wheezes noted. No increased work of breathing, no retractions or nasal flaring. Abdomen/GI: Soft, non-tender, with normal bowel sounds. No distension or tympany. No guarding or rebound. No evidence of tenderness throughout. 13:01 Skin: injury, bite(s), deep, linear, of the left leg, Vital Signs: 12:56 BP 153 / 102; Pulse 78; Resp 17; Temp 98.4(O); Pulse Ox 99% ; Weight 73.48 kg; Height 5 ll1 ft. 4 in. ; Pain 9/10; 12:56 Body Mass Index 27.81 (73.48 kg, 162.56 cm) ll1 12:56 Pain Scale: Adult ll1 MDM: 13:01 Patient medically screened. ms3 13:01 Differential diagnosis: superficial laceration, cellulitis, Puncture wound. ms3 18:17 Data reviewed: vital signs, nurses notes, radiologic studies, and as a result, I will ms3 discharge patient. I considered the following discharge prescriptions or medication management in the emergency department Medications were administered in the Emergency Department. See MAR. Independent interpretation of the following test(s) in the Emergency Department X-Ray: My interpretation is Femur x-ray image reviewed by me does not reveal ROFB. Care significantly affected by the following chronic conditions: Hypertension. Counseling: I had a detailed discussion with the patient and/or guardian regarding the historical points, exam findings, and any diagnostic results supporting the discharge/admit diagnosis, radiology results, the need for outpatient follow up, to return to the emergency department if symptoms worsen or persist or if there are any questions or concerns that arise at home. Special discussion: I discussed with the patient/guardian in detail that at this point there is no indication for admission to the hospital. It is understood, however, that if the symptoms persist or worsen the patient needs to return immediately for re-evaluation. ED course: Discussed x-ray results with patient. Patient to follow-up with primary care physician in 2 to 3 days. Patient understands and agrees with plan. All questions were answered. Return precautions discussed include worsening symptoms, fevers, or any other concerns. On reevaluation patient is alert and oriented x 4, no apparent distress, nontoxic-appearing, speaking full sentences, ambulatory in the emergency department. 05/28 13:01 Order name: Femur Left XRAY; Complete Time: 13:58 ms3 Administered Medications: 13:55 Drug: Boostrix Tdap IM 0.5 ml IM once; as a single dose Route: IM; Site: left deltoid; iw 14:10 Follow up: Response: (VIS) Vaccine information sheet provided today. Questions and/or iw concerns addressed. VIS edition date: Nov 06, 2020.; No adverse reaction 13:55 Drug: Amoxicillin-Clavulanate PO 875 mg PO once Route: PO; iw 14:15 Follow up: Response: No adverse reaction iw 13:55 Drug: Doxycycline PO 100 mg PO once Route: PO; iw 14:15 Follow up: Response: No adverse reaction iw 14:22 Drug: HYDROcodone-acetaminophen PO 5 mg-325 mg 1 tabs PO once Route: PO; iw 14:45 Follow up: Response: No adverse reaction iw Disposition Summary: 08/29/23 14:08 Discharge Ordered Notes: Location: Home ms3 Condition: Stable ms3 Diagnosis - Dog bite ms3 - Cellulitis ms3 Followup: ms3 - With: Garrett Mitchell MD - When: 2 - 3 days - Reason: Recheck today's complaints Discharge Instructions: - Discharge Summary Sheet ms3 - Animal Bite, Adult ms3 Forms: - Medication Reconciliation Form ms3 - Antibiotic Education ms3 - Prescription Opioid Use ms3 - Patient Portal Instructions ms3 - Leadership Thank You Letter ms3 Prescriptions: - Augmentin 875-125 mg Oral Tablet - take 1 tablet ORAL route every 12 hours for 10 days; 20 tablet; Refills: 0, ms3 Product Selection Permitted - Doxycycline Hyclate 100 mg Oral Tablet - take 1 tablet ORAL route every 12 hours; 20 tablet; Refills: 0, Product ms3 Selection Permitted Signatures: Dispatcher [employer] Lala Rodriguez RN RN iw Marc Mandujano RN RN 1 Fernando Hdz DO DO ms3
--- NOTE | 2023-08-29 14:09 | ER ---
Nurse's Notes [facility] Name: Arianne Beaver Age: 47 yrs Sex: Female : 1975 Arrival Date: 08/29/2023 Time: 12:28 Bed 12 Private MD: Diagnosis: Dog bite;Cellulitis Presentation: 08/28 12:56 Chief complaint: Patient states: Dog bite L leg early Monday morning. Site is red, ll1 slight drainage. Sore throat now. Coronavirus screen: Client denies travel out of the [place] in the last 14 days. At this time, the client does not indicate any symptoms associated with coronavirus-19. Ebola Screen: Patient denies travel to an Ebola-affected area in the 21 days before illness onset. Initial Sepsis Screen: Does the patient meet any 2 criteria? No. Patient's initial sepsis screen is negative. Does the patient have a suspected source of infection? No. Patient's initial sepsis screen is negative. Risk Assessment: Do you want to hurt yourself or someone else? Patient reports no desire to harm self or others. Onset of symptoms was August 26, 2023. 12:56 Method Of Arrival: Ambulatory ll1 12:56 Acuity: ANALILIA 3 ll1 Triage Assessment: 12:58 General: Appears uncomfortable, Behavior is calm, cooperative, appropriate for age. ll1 Pain: Complains of pain in left leg Pain currently is 9 out of 10 on a pain scale. Quality of pain is described as aching. Derm: Reports dog bite L thigh. 14:20 Bite description: bite sustained to medial aspect of left thigh and left leg by a dog, iw animal information: vaccination(s) is unknown. Historical: - Allergies: 12:53 No Known Allergies; ll1 - PMHx: 12:53 Hypertensive disorder; ll1 - PSHx: 12:53 Total abdominal hysterectomy; ll1 - Immunization history:: Adult Immunizations up to date. - Infectious Disease History:: Denies. Screenin:[address] [facility] ED Fall Risk Assessment (Adult) History of falling in the last 3 months, iw including since admission No falls in past 3 months (0 pts) Confusion or Disorientation No (0 pts) Intoxicated or Sedated No (0 pts) Impaired Gait No (0 pts) Mobility Assist Device Used No (0 pt) Altered Elimination No (0 pt) Score/Fall Risk Level 0 - 2 = Low Risk Oriented to surroundings. Abuse screen: Denies threats or abuse. Denies injuries from another. Nutritional screening: No deficits noted. Tuberculosis screening: No symptoms or risk factors identified. Assessment: 14:00 General: Appears uncomfortable, Behavior is cooperative. Pain: Complains of pain in iw left leg. Neuro: Level of Consciousness is awake, alert, obeys commands, Oriented to person, place, time, situation, Moves all extremities. Derm: Skin Skin is normal, Bruising that is dark purple, on medial aspect of left thigh. Musculoskeletal: Range of motion: intact in all extremities. Injury Description: Bite sustained to medial aspect of left thigh caused by a dog, is full thickness, was sustained 3 days. Vital Signs: 12:56 BP 153 / 102; Pulse 78; Resp 17; Temp 98.4(O); Pulse Ox 99% ; Weight 73.48 kg; Height 5 ll1 ft. 4 in. ; Pain 9/10; 12:56 Body Mass Index 27.81 (73.48 kg, 162.56 cm) ll1 12:56 Pain Scale: Adult ll1 ED Course: 12:38 Patient arrived in ED. mr 12:53 Arm band placed on. ll1 12:54 Fernando Hdz DO is Attending Physician. ms3 12:58 Triage completed. ll1 13:29 Patient placed in an exam room, on a stretcher. ll1 13:29 Door closed. Lights dimmed. ll1 13:33 Lala Conley, RN is Primary Nurse. iw 13:50 Femur Left XRAY In Process Unspecified. EDMS 14:00 Patient has correct armband on for positive identification. Provided Education on: . iw 14:07 Garrett Mitchell MD is Referral Physician. ms3 14:20 No provider procedures requiring assistance completed. Patient did not have IV access iw during this emergency room visit. Administered Medications: 13:55 Drug: Boostrix Tdap IM 0.5 ml IM once; as a single dose Route: IM; Site: left deltoid; iw 14:10 Follow up: Response: (VIS) Vaccine information sheet provided today. Questions and/or iw concerns addressed. VIS edition date: Nov 06, 2020.; No adverse reaction 13:55 Drug: Amoxicillin-Clavulanate PO 875 mg PO once Route: PO; iw 14:15 Follow up: Response: No adverse reaction iw 13:55 Drug: Doxycycline PO 100 mg PO once Route: PO; iw 14:15 Follow up: Response: No adverse reaction iw 14:22 Drug: HYDROcodone-acetaminophen PO 5 mg-325 mg 1 tabs PO once Route: PO; iw 14:45 Follow up: Response: No adverse reaction iw Medication: 14:20 Vaccine Information Statement (VIS) provided today. Questions and/or concerns iw addressed. VIS edition date: November 06, 2020. Outcome: 14:08 Discharge ordered by ms3 14:21 Discharged to home ambulatory, iw 14:21 Condition: good 14:21 Discharge instructions given to patient, Instructed on discharge instructions, follow up and referral plans. medication usage, Demonstrated understanding of instructions, follow-up care, medications, Prescriptions given X 2, 14:22 Patient left the ED. iw Signatures: Dispatcher [employer] EDMS CallahanMolly acuna, Reg Reg mr Lala Conley RN RN iw Marc Mandujano RN RN ll1 Fernando Hdz DO DO ms3 Corrections: (The following items were deleted from the chart) 12:59 12:56 Pulse 78bpm; Resp 17bpm; Pulse Ox 99%; Temp 98.4F Oral; 73.48 kg; Height 5 ft. 4 ll1 in.; BMI: 27.8; Pain 9/10, Adult; ll1
[2023-08-29] MEDS ORDERED: HYDROCODONE/APAP 5/325 MG TAB ONE (14:10)
== END 2023-08-29 14:22 | disposition home or self-care (01) ==
LOC: ER 12:28
DX: L03.116 Cellulitis of left lower limb (principal); W54.0XXA Bitten by dog, initial encounter
CPT/HCPCS: 96372; 99284